=== PATIENT | female | born 1940 | race Caucasian/White ===

== ENCOUNTER → 2016-07-23 | Outpatient (CLI) | payer MEDICARE, BC ==
--- NOTE | 2016-07-23 19:44 | BD ---
EXAMINATION TYPE: MG DEXA axial skeleton. DATE OF EXAM: 07/23/2016 3:50 PM COMPARISON: NONE CLINICAL HISTORY: age related osteoporosis. Postmenopausal female. Height: 5'3 Weight: 132 FRAX RISK QUESTIONS: Alcohol (3 or more units per day): no Family History (Parent hip fracture): no Glucocorticoids (More than 3mos): no (Ex: prednisone, prednisolone, methylprednisolone, dexamethasone, and hydrocortisone). History of Fracture in Adulthood: yes Secondary Osteoporosis: 1. Type 1 Diabetes: no 2. Hyperthyroidism: no 3. Menopause before 45: yes 4. Malnutrition: no 5. Chronic liver disease: no Rheumatoid Arthritis: no Current Tobacco Use: no RISK FACTORS HISTORY OF: Other Fractures since Age 51: yes When: age 69 Active: Postmenopausal woman: MEDICATIONS: Thyroid Medications: Which medication: Levothyroxine How Lon years Additional Medications: IBS, blood pressure,Guillain barre Additional History: EXAM MEASUREMENTS: Bone mineral densitometry was performed using the [email or web address] System. Bone mineral density as measured about the Lumbar spine is: ----- L1-L4(G/cm2): 1.462 T Score Values are as follows: ----- L2: 1.9 ----- L3: 2.3 ----- L4: 2.9 ----- L1-L4: 2.3 Bone mineral density about the R hip (g/cm2): 1.050 Bone mineral density about the L hip (g/cm2): 1.017 T Score values are as follows: -----R Neck: 0.1 -----L Neck: -0.2 -----R Total: 0.9 -----L Total: 1.2 IMPRESSION: Normal (Values between +1 and -1 indicate normal bone mass). Consider repeating this study in 5 year s or sooner if there is some new clinical indication. NOTE: T-SCORE=SD OF THE YOUNG ADULT MEAN.
--- NOTE | 2016-07-24 12:45 | MM ---
Reason for exam: screening (asymptomatic). Last mammogram was performed 9 years and 1 month ago. History: Patient is postmenopausal. Benign excisional biopsy of the right breast, March 18, 2001. Physical Findings: A clinical breast exam by your physician is recommended on an annual basis and results should be correlated with mammographic findings. MG 3D Screening Mammo W/Cad Bilateral CC and MLO view(s) were taken. Prior study comparison: July 08, 2007, bilateral digital screening mammogram. There are scattered fibroglandular densities. There is no discrete abnormality. ASSESSMENT: Negative, BI-RAD 1 RECOMMENDATION: Routine screening mammogram of both breasts in 1 year.
== END | disposition home or self-care (01) ==
LOC: RADMAMWWP 15:00
PROVIDERS: ATTEND Internal Medicine Geriatric Medicine
DX: Z12.31 Encounter for screening mammogram for malignant neoplasm of breast (principal); M81.0 Age-related osteoporosis without current pathological fracture
CPT/HCPCS: 77080; 77063; G0202

== ENCOUNTER 2016-11-15 07:24 | Day surgery (SDC) | payer MEDICARE, BC ==
[2016-11-14 08:18] VITALS: BMI 23.8
[~2016-11-15 07:24] MED LIST: LACTATED RINGERS 1,000 ML IV SCH
[2016-11-15 07:45] VITALS: RESP 16; TEMP 97.3
[2016-11-15 07:55] LABS: Glucose,Whole Blood 124 mg/dL (75-99)
[2016-11-15] MEDS ORDERED: LIDOCAINE 1% 20 ML VIAL (10MG/ML) FOR IV START INTRADERMA ONE (08:00)
[2016-11-15] MEDS ORDERED: PROPOFOL 10 MG/ML 20 ML VIAL IV ONE (08:06)
--- NOTE | 2016-11-15 08:38 | P.PCN ---
Date of Procedure: 11/15/16 Preoperative Diagnosis: Postoperative Diagnosis: Procedure(s) Performed: BRIEF HISTORY: Patient is a 75-year-old pleasant white female, scheduled for an elective colonoscopy as a part of surveillance for long-standing history of ulcerative colitis. She is in clinical remission. PROCEDURE PERFORMED: Colonoscopy with biopsy. PREOPERATIVE DIAGNOSIS: Long-standing history of ulcerative colitis. IV sedation per Anesthesia. PROCEDURE: After informed consent was obtained, the patient, was brought into the endoscopy unit. IV sedation was administered by Anesthesia under continuous monitoring. Digital rectal examination was normal. Initially the Olympus CF- 160 flexible video colonoscope was then inserted in the rectum, gradually advanced into the sigmoid colon and further advancement was not possible. Hence the scope was removed and a pediatric colonoscope was introduced into the rectum and gently advanced into the cecum without any difficulty. Careful examination was performed as the scope was gradually being withdrawn. Ileocecal valve and the appendiceal orifice were visualized and appeared normal. Prep was fair.. Mucosa of the cecum, ascending colon, transverse colon, descending colon, sigmoid colon, and rectum appeared normal. Multiple random biopsies were done from all different areas of the colon at every 10 cm into well. Retroflexion was performed in the rectum and no lesions were seen. Scattered sigmoid diverticulosis seen. The patient tolerated the procedure well. IMPRESSION: Normal-appearing colon from rectum to cecum with no evidence of active colitis or colorectal neoplasia. Scattered sigmoid diverticulosis RECOMMENDATIONS: Findings of this examination were discussed with the patient as well as a family. She was advised to follow with the biopsy results. If the biopsy does not show any evidence of dysplasia she can have a repeat colonoscopy in 3 years. Implants: Indications for Procedure: Operative Findings: Description of Procedure:
[2016-11-15 09:10] VITALS: BP 127/58; PULSE 53
== END 2016-11-15 09:29 | disposition home or self-care (01) ==
LOC: ORWHC2ENDO 07:24
PROVIDERS: ATTEND Internal Medicine Gastroenterology
DX: K52.9 Noninfective gastroenteritis and colitis, unspecified (principal); E11.9 Type 2 diabetes mellitus without complications; Z79.84 Long term (current) use of oral hypoglycemic drugs; E07.9 Disorder of thyroid, unspecified; G61.0 Guillain-Barre syndrome; Z79.899 Other long term (current) drug therapy; Z88.1 Allergy status to other antibiotic agents; Z88.8 Allergy status to other drugs, medicaments and biological substances
CPT/HCPCS: 88305; 45380; J2704

== ENCOUNTER 2016-12-22 14:24 | Inpatient (IN) | payer MEDICARE, BC ==
[2016-12-22] MEDS ORDERED: SODIUM CHLORIDE 0.9% 500 ML IV STA (16:01)
[2016-12-22] MEDS ORDERED: HYDROmorphone 1 MG/ML 1 ML SYRINGE IVP STA (16:01)
[2016-12-22] MEDS ORDERED: SODIUM CHLORIDE 0.9% 1,000 ML IV STA (16:01)
[2016-12-22] MEDS ORDERED: ONDANSETRON 4 MG/2 ML VIAL IVP STA (16:01)
--- NOTE | 2016-12-22 16:26 | ED ---
General Adult HPI - General Source: patient, family, RN notes reviewed, old records reviewed Mode of arrival: wheelchair Limitations: no limitations <Mathieu Renteria - Last Filed: 12/22/16 16:02> <Alden Ackerman - Last Filed: 12/22/16 18:36> <Pipo Rhodes - Last Filed: 12/22/16 19:15> - General Chief complaint: Abdominal Pain Stated complaint: Abd Pain Time Seen by Provider: 12/22/16 15:49 - History of Present Illness Initial comments: Chief complaint history of present illness this is a 76-year-old female here with her . The patient reports since partially To patient having severe epigastric pain is in the supraumbilical area. The patient does have appointment to have a hernia in this area repaired in approximately 3 weeks. Currently she's had nausea vomiting and severe pain. Even mild palpation over the palpable golf ball sized hernia causes excruciating discomfort. (Mathieu Renteria) - Related Data Home Medications Medication Instructions Recorded Confirmed Levothyroxine Sodium [Synthroid] 100 mcg PO DAILY 03/14/14 12/22/16 Mirabegron [Myrbetriq] 25 mg PO DAILY 11/14/16 12/22/16 metFORMIN HCL [Glucophage] 500 mg PO BID 11/14/16 12/22/16 Carvedilol [Coreg] 3.125 mg PO BID 12/22/16 12/22/16 Cholecalciferol [Vitamin D3] 1,000 unit PO DAILY 12/22/16 12/22/16 glipiZIDE [Glucotrol] 5 mg PO AC-BRKFST 12/22/16 12/22/16 Allergies Allergy/AdvReac Type Severity Reaction Status Date / Time clarithromycin [From Biaxin] Allergy Unknown Verified 12/22/16 16:24 diphenhydramine HCl AdvReac Unknown Verified 12/22/16 16:24 [From Benadryl] Review of Systems ROS Other: All systems not noted in ROS Statement are negative. <Mathieu Renteria - Last Filed: 12/22/16 16:02> ROS Other: All systems not noted in ROS Statement are negative. <Alden Ackerman - Last Filed: 12/22/16 18:36> ROS Other: All systems not noted in ROS Statement are negative. <Pipo Rhodes - Last Filed: 12/22/16 19:15> ROS Statement: Those systems with pertinent positive or pertinent negative responses have been documented in the HPI. Review of systems no complaint of headache, chest pain, or shortness of breath. The patient does have exquisite supraumbilical pain and a palpable nonreducible hernias appreciated. The patient won't allow even mild palpation to try to reduce the hernia at this time because of the pain. No neuro deficits. All systems are reviewed. 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 Surgeries cholecystectomy, hysterectomy, bilateral hand surgeries because of the plan beret. Family history no cancers. Nonsmoker nondrinker. ALLERGIES include erythromycin and diphenhydramine. (Mathieu Renteria) Past Medical History Past Medical History: Diabetes Mellitus, Thyroid Disorder Additional Past Medical History / Comment(s): guillain-barre syndrome, History of Any Multi-Drug Resistant Organisms: None Reported Past Surgical History: Cholecystectomy, Hysterectomy, Orthopedic Surgery Additional Past Surgical History / Comment(s): junior hand surgery, thryroid Past Anesthesia/Blood Transfusion Reactions: No Reported Reaction Past Psychological History: No Psychological Hx Reported Smoking Status: Never smoker - Past Family History Mother Family Medical History: No Reported History <Mathieu Renteria - Last Filed: 12/22/16 16:02> General Exam Limitations: no limitations <Mathieu Renteria - Last Filed: 12/22/16 16:02> <Alden Ackerman - Last Filed: 12/22/16 18:36> <Pipo Rhodes - Last Filed: 12/22/16 19:15> - General Exam Comments Initial Comments: General: The patient is awake and alert, moderate distress because of a nonreducible supraumbilical hernia. Vital signs temperature 98.6 pulse 69 respiratory rate 18 pulse ox 97% room air blood pressure 141/92 Eye: Pupils are equal, , extra-ocular movements are intact; there is normal conjunctiva bilaterally. Ears, nose, mouth and throat: There are moist mucous membranes Neck: The neck is supple, there is no tenderness or JVD. Cardiovascular: There is a regular rate and rhythm. No murmur appreciated. Respiratory: Lungs are clear to auscultation, respirations are non-labored, breath sounds are equal. No wheezes, stridor, rales, or rhonchi. Gastrointestinal: Is identified, golf ball sized supraumbilical hernia exquisitely painful to palpation. Patient cannot stand the pain while trying to reduce. Patient be placed in Trendelenburg with an ice pack to help it resolve spontaneously. The patient reports having had similar pain one week ago it spontaneously resolved. Back: No complaint of back pain Musculoskeletal: Upper and lower extremities normal. 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 Skin: Skin is warm and dry and no rashes or lesions are noted. (Mathieu Renteria) Medical Decision Making <Mathieu Renteria - Last Filed: 12/22/16 16:02> - Lab Data Result diagrams: 12/22/16 16:50 12/22/16 16:50 - Radiology Data Radiology results: image reviewed (Abdominal x-ray shows no acute process) <Alden Ackerman - Last Filed: 12/22/16 18:36> - Lab Data Result diagrams: 12/22/16 16:50 12/22/16 16:50 <Pipo Rhodes - Last Filed: 12/22/16 19:15> - Medical Decision Making Patient reevaluated by myself, Dr. Ackerman. I also did attempt reduction of suprapubic umbilical hernia. This was minimally reduced. Patient did not allow further reduction secondary to discomfort. Case was discussed in detail with Dr. Yu who will come evaluate patient with probable surgery. She is covering for Dr. Michaud. Patient does have surgery scheduled with Dr. Jose Steiner on January 14. (Alden Ackerman) I reviewed the preop EKG because Dr. Ackerman had left. EKG shows a sinus bradycardia 59 bpm WV interval is 202 QRS is 76 QT interval 456 QTC is [address] segment elevation or depression no T-wave abnormalities are noted ( Pipo Rhodes) - Lab Data Lab Results 12/22/16 12/22/16 12/22/16 Range/Units 16:50 16:50 16:50 WBC 5.3 (3.8-10.6) k/uL RBC 4.18 (3.80-5.40) m/uL Hgb 12.6 (11.4-16.0) gm/dL Hct 39.8 (34.0-46.0) % MCV 95.2 (80.0-100.0) fL MCH 30.0 (25.0-35.0) pg MCHC 31.6 (31.0-37.0) g/dL RDW 13.0 (11.5-15.5) % Plt Count 244 (150-450) k/uL Neutrophils % 64 % Lymphocytes % 25 % Monocytes % 7 % Eosinophils % 1 % Basophils % 1 % Neutrophils # 3.4 (1.3-7.7) k/uL Lymphocytes # 1.3 (1.0-4.8) k/uL Monocytes # 0.4 (0-1.0) k/uL Eosinophils # 0.0 (0-0.7) k/uL Basophils # 0.0 (0-0.2) k/uL Sodium 140 (137-145) mmol/L Potassium 4.2 (3.5-5.1) mmol/L Chloride 107 (98-107) mmol/L Carbon Dioxide 22 (22-30) mmol/L Anion Gap 11 mmol/L BUN 15 (7-17) mg/dL Creatinine 0.40 L (0.52-1.04) mg/dL Est GFR (MDRD) Af Amer >60 (>60 ml/min/1.73 sqM) Est GFR (MDRD) Non-Af >60 (>60 ml/min/1.73 sqM) Glucose 148 H (74-99) mg/dL Plasma Lactic Acid Michael 1.1 (0.7-2.0) mmol/L Calcium 9.2 (8.4-10.2) mg/dL Total Bilirubin 0.5 (0.2-1.3) mg/dL AST 23 (14-36) U/L ALT 36 (9-52) U/L Alkaline Phosphatase 53 (38-126) U/L Total Protein 7.5 (6.3-8.2) g/dL Albumin 4.1 (3.5-5.0) g/dL Amylase 64 (30-110) U/L Lipase 81 (23-300) U/L Urine Color Urine Appearance (Clear) Urine pH (5.0-8.0) Ur Specific Cutler (1.001-1.035) Urine Protein (Negative) Urine Glucose (UA) (Negative) Urine Ketones (Negative) Urine Blood (Negative) Urine Nitrite (Negative) Urine Bilirubin (Negative) Urine Urobilinogen (<2.0) mg/dL Ur Leukocyte Esterase (Negative) Urine RBC (0-5) /hpf Urine WBC (0-5) /hpf Urine Bacteria (None) /hpf 12/22/16 Range/Units 17:08 WBC (3.8-10.6) k/uL RBC (3.80-5.40) m/uL Hgb (11.4-16.0) gm/dL Hct (34.0-46.0) % MCV (80.0-100.0) fL MCH (25.0-35.0) pg MCHC (31.0-37.0) g/dL RDW (11.5-15.5) % Plt Count (150-450) k/uL Neutrophils % % Lymphocytes % % Monocytes % % Eosinophils % % Basophils % % Neutrophils # (1.3-7.7) k/uL Lymphocytes # (1.0-4.8) k/uL Monocytes # (0-1.0) k/uL Eosinophils # (0-0.7) k/uL Basophils # (0-0.2) k/uL Sodium (137-145) mmol/L Potassium (3.5-5.1) mmol/L Chloride (98-107) mmol/L Carbon Dioxide (22-30) mmol/L Anion Gap mmol/L BUN (7-17) mg/dL Creatinine (0.52-1.04) mg/dL Est GFR (MDRD) Af Amer (>60 ml/min/1.73 sqM) Est GFR (MDRD) Non-Af (>60 ml/min/1.73 sqM) Glucose (74-99) mg/dL Plasma Lactic Acid Michael (0.7-2.0) mmol/L Calcium (8.4-10.2) mg/dL Total Bilirubin (0.2-1.3) mg/dL AST (14-36) U/L ALT (9-52) U/L Alkaline Phosphatase (38-126) U/L Total Protein (6.3-8.2) g/dL Albumin (3.5-5.0) g/dL Amylase (30-110) U/L Lipase (23-300) U/L Urine Color Light Yellow Urine Appearance Clear (Clear) Urine pH 6.0 (5.0-8.0) Ur Specific Cutler 1.007 (1.001-1.035) Urine Protein Negative (Negative) Urine Glucose (UA) Negative (Negative) Urine Ketones Negative (Negative) Urine Blood Small H (Negative) Urine Nitrite Negative (Negative) Urine Bilirubin Negative (Negative) Urine Urobilinogen <2.0 (<2.0) mg/dL Ur Leukocyte Esterase Negative (Negative) Urine RBC 6 H (0-5) /hpf Urine WBC 1 (0-5) /hpf Urine Bacteria Rare H (None) /hpf Disposition <Mathieu Renteria - Last Filed: 12/22/16 16:02> Decision Time: 18:38 <Alden Ackerman - Last Filed: 12/22/16 18:36> <Pipo Rhodes - Last Filed: 12/22/16 19:15> Clinical Impression: Incarcerated hernia Disposition: ADMITTED IP TO THIS [facility] Condition: Serious
[2016-12-22 17:09] LABS: Basophils % (A) 1 %; CH 30.6; CHCM 32.3; Eosinophils % (A) 1 %; HCT 39.8 % (34.0-46.0); HGB 12.6 gm/dL (11.4-16.0); Luc # (Auto) 0.13; Luc % (Auto) 3; Lymphocytes # (A) 1.3 k/uL (1.0-4.8); Lymphocytes % (A) 25 %; MCHC 31.6 g/dL (31.0-37.0); MCV 95.2 fL (80.0-100.0); Mean Platelet Volume 7.1; Monocytes # (A) 0.4 k/uL (0-1.0); Monocytes % (A) 7 %; Neutrophils # (A) 3.4 k/uL (1.3-7.7); Neutrophils % (A) 64 %; RBC 4.18 m/uL (3.80-5.40); WBC 5.3 k/uL (3.8-10.6); WBC (Perox) 5.19
[2016-12-22 17:18] LABS: ALT 36 U/L (9-52); AST 23 U/L (14-36); Alkaline Phosphatase 53 U/L (38-126); Amylase 64 U/L (30-110); Anion Gap 11 mmol/L; Blood Urea Nitrogen 15 mg/dL (7-17); Calcium 9.2 mg/dL (8.4-10.2); Carbon Dioxide 22 mmol/L (22-30); Chloride 107 mmol/L (98-107); Glucose 148 mg/dL (74-99); Non-African American GFR(MDRD) >60 (>60 ml/min/1.73 sqM); Potassium 4.2 mmol/L (3.5-5.1); Sodium 140 mmol/L (137-145); Total Bilirubin 0.5 mg/dL (0.2-1.3); Total Protein 7.5 g/dL (6.3-8.2)
[2016-12-22 17:26] LABS: Appearance,Urine Clear (Clear); Bacteria,Urine Rare /hpf; Bilirubin,Urine Negative (Negative); Glucose,Urine (UA) Negative (Negative); Ketones,Urine Negative (Negative); Leukocyte Esterase,Urine Negative (Negative); Nitrite,Urine Negative (Negative); Particle Count 270; Protein,Urine Negative (Negative); RBC,Urine 6 /hpf (0-5); Specific Gravity,Urine 1.007 (1.001-1.035); UA Billing (MACRO vs. MICRO) MICRO; Urobilinogen,Urine <2.0 mg/dL (<2.0); WBC,Urine 1 /hpf (0-5)
--- NOTE | 2016-12-22 17:51 | XR ---
EXAMINATION TYPE: XR abdomen complete w decub DATE OF EXAM: 12/22/2016 CLINICAL HISTORY: Nonreducible supraumbilical hernia with pain. TECHNIQUE: Supine, upright, and left side down lateral decubitus views of the abdomen are obtained. COMPARISON: Abdominal x-ray May 30, 2012. FINDINGS: Scattered gas is seen in non-distended small bowel loops. Gas and fecal material is seen in non-distended colon. Cholecystectomy clips are now present. There are scattered pelvic phleboliths seen. Lung bases are clear. Visualized osseous structures are intact. IMPRESSION: Overall nonobstructive bowel gas pattern.
[2016-12-22] MEDS ORDERED: NALOXONE 0.4 MG/ML 1 ML VIAL IV PRN (18:38)
[2016-12-22] MEDS ORDERED: NEOSTIGMINE 1 MG/ML 10 ML VIAL ONE (19:40)
[2016-12-22] MEDS ORDERED: ONDANSETRON 4 MG/2 ML VIAL ONE (19:40)
[2016-12-22] MEDS ORDERED: SUCCINYLCHOLINE CHLORIDE 100 MG/5 ML SYR IV ONE (19:40)
[2016-12-22] MEDS ORDERED: fentaNYL (PF) 50 MCG/ML 2 ML AMP ONE (19:40)
[2016-12-22] MEDS ORDERED: hydrALAZINE HCL 20 MG/ML 1 ML VIAL ONE (19:40)
[2016-12-22] MEDS ORDERED: VECURONIUM 10 MG VIAL IV ONE (19:40)
[2016-12-22] MEDS ORDERED: MIDAZOLAM 2 MG/2 ML VIAL ONE (19:40)
[2016-12-22] MEDS ORDERED: LIDOCAINE 1% INJ 10MG/ML (20 ML MDV) ONE (19:40)
[2016-12-22] MEDS ORDERED: DEXAMETHASONE SOD PHOS (MDV) 100 MG/10 ML VIAL ONE (19:40)
[2016-12-22] MEDS ORDERED: PROPOFOL 10 MG/ML 20 ML VIAL IV ONE (19:40)
[2016-12-22] MEDS ORDERED: GLYCOPYRROLATE 0.2 MG/ML 2 ML VIAL ONE (19:40)
[2016-12-22] MEDS ORDERED: SODIUM CHLORIDE 0.9% 500 ML IV ONE (19:40)
[2016-12-22] MEDS ORDERED: HYDROmorphone (PF) 1 MG/ML ONE (19:40)
[2016-12-22] MEDS ORDERED: HEPARIN SODIUM,PORCINE 5,000 UNIT/ML 1 ML VIAL ONE (19:40)
[2016-12-22] MEDS ORDERED: KETAMINE 10 MG/ML 20 ML VIAL ONE (19:40)
[2016-12-22] MEDS ORDERED: ceFAZolin 1,000 MG VIAL ONE (19:40)
[2016-12-22] MEDS ORDERED: BUPIVACAINE (PF) 0.25% 30 ML VIAL SQ ONE ×3 (20:03)
[2016-12-22] MEDS ORDERED: LACTATED RINGERS 1,000 ML IV ONE (20:11)
[2016-12-22] MEDS ORDERED: ONDANSETRON 4 MG/2 ML VIAL IVP PRN (21:25)
--- NOTE | 2016-12-22 21:29 | P.GSHP ---
History of Present Illness H&P Date: 12/22/16 Chief Complaint: Incarcerated ventral hernia 76 yrs old female presented with incarcerated epigastric hernia. Scheduled for elective repair by Dr. Jose Murdock in January. She has diffuse abdominal pain, nausea and vomiting. No fever, chills, rigors. - Constitutional Constitutional: Reports fatigue - EENT Ears, nose, mouth and throat: Reports as per HPI - Cardiovascular Cardiovascular: Reports as per HPI - Respiratory Respiratory: Reports as per HPI - Gastrointestinal Gastrointestinal: Reports as per HPI - Genitourinary (Female) Genitourinary: Reports as per HPI - Menstruation Menstruation: Reports postmenopausal - Musculoskeletal Musculoskeletal: Reports as per HPI - Integumentary Integumentary: Reports as per HPI - Psychiatric Psychiatric: Reports as per HPI - Endocrine Endocrine: Reports as per HPI - Hematologic/Lymphatic Hematologic/Lymphatic: Reports as per HPI - Allergic/Immunologic Allergic/Immunologic: Reports as per HPI Past Medical History Past Medical History: Diabetes Mellitus, Thyroid Disorder Additional Past Medical History / Comment(s): guillain-barre syndrome, History of Any Multi-Drug Resistant Organisms: None Reported Past Surgical History: Cholecystectomy, Hysterectomy, Orthopedic Surgery Additional Past Surgical History / Comment(s): junior hand surgery, thryroid Past Anesthesia/Blood Transfusion Reactions: No Reported Reaction Smoking Status: Never smoker - Past Family History Mother Family Medical History: No Reported History Medications and Allergies Home Medications Medication Instructions Recorded Confirmed Type Levothyroxine Sodium [Synthroid] 100 mcg PO DAILY 03/14/14 12/22/16 History Mirabegron [Myrbetriq] 25 mg PO DAILY 11/14/16 12/22/16 History metFORMIN HCL [Glucophage] 500 mg PO BID 11/14/16 12/22/16 History Carvedilol [Coreg] 3.125 mg PO BID 12/22/16 12/22/16 History Cholecalciferol [Vitamin D3] 1,000 unit PO DAILY 12/22/16 12/22/16 History glipiZIDE [Glucotrol] 5 mg PO AC-BRKFST 12/22/16 12/22/16 History Allergies Allergy/AdvReac Type Severity Reaction Status Date / Time clarithromycin [From Biaxin] Allergy Unknown Verified 12/22/16 16:24 diphenhydramine HCl AdvReac Unknown Verified 12/22/16 16:24 [From Benadryl] Surgical - Exam - General well developed, moderate distress, severe pain - Eyes normal ocular movement, pale - Neck no masses - Respiratory normal expansion, normal respiratory effort, clear to auscultation - Cardiovascular Rhythm: regular Heart Sounds: normal: S1, S2 - Abdomen Abdomen: tender (Diffuse tendernes with peritonitis ) - Integumentary no rash - Musculoskeletal normal gait - Psychiatric oriented to time, oriented to person, oriented to place, speech is normal, memory intact Results - Imaging Abdominal x-ray: image reviewed Assessment and Plan (1) Type 2 diabetes mellitus Status: Acute (2) Incarcerated hernia Status: Acute (3) Hypothyroidism Status: Acute (4) Peritonitis Status: Acute Plan: 1. Incarcerated ventral hernia with localized peritonitis 2. Lap hernia repair with mesh possible open, possible bowel resection 3. Heparin 5000U SQ 4. Ancef 2gm IVPBx1 5. Bilateral SCDS Past Medical History Past Medical History: Diabetes Mellitus, Thyroid Disorder Additional Past Medical History / Comment(s): guillain-barre syndrome, History of Any Multi-Drug Resistant Organisms: None Reported Past Surgical History: Cholecystectomy, Hysterectomy, Orthopedic Surgery Additional Past Surgical History / Comment(s): junior hand surgery, thryroid Past Anesthesia/Blood Transfusion Reactions: No Reported Reaction Past Psychological History: No Psychological Hx Reported Smoking Status: Never smoker - Past Family History Mother Family Medical History: No Reported History Medications and Allergies Home Medications Medication Instructions Recorded Confirmed Type Levothyroxine Sodium [Synthroid] 100 mcg PO DAILY 03/14/14 12/22/16 History Mirabegron [Myrbetriq] 25 mg PO DAILY 11/14/16 12/22/16 History metFORMIN HCL [Glucophage] 500 mg PO BID 11/14/16 12/22/16 History Carvedilol [Coreg] 3.125 mg PO BID 12/22/16 12/22/16 History Cholecalciferol [Vitamin D3] 1,000 unit PO DAILY 12/22/16 12/22/16 History glipiZIDE [Glucotrol] 5 mg PO AC-BRKFST 12/22/16 12/22/16 History Allergies Allergy/AdvReac Type Severity Reaction Status Date / Time clarithromycin [From Biaxin] Allergy Unknown Verified 12/22/16 16:24 diphenhydramine HCl AdvReac Unknown Verified 12/22/16 16:24 [From Benadryl] Surgical - Exam Vital Signs Temp Pulse Resp BP Pulse Ox 98.6 F 69 18 141/92 97 12/22/16 15:04 12/22/16 15:04 12/22/16 15:04 12/22/16 15:04 12/22/16 15:04 Results - Labs 12/22/16 16:50 12/22/16 16:50 Abnormal Lab Results - Last 24 Hours (Table) 12/22/16 12/22/16 Range/Units 16:50 17:08 Creatinine 0.40 L (0.52-1.04) mg/dL Glucose 148 H (74-99) mg/dL Urine Blood Small H (Negative) Urine RBC 6 H (0-5) /hpf Urine Bacteria Rare H (None) /hpf Diabetes panel 12/22/16 Range/Units 16:50 Sodium 140 (137-145) mmol/L Potassium 4.2 (3.5-5.1) mmol/L Chloride 107 (98-107) mmol/L Carbon Dioxide 22 (22-30) mmol/L BUN 15 (7-17) mg/dL Creatinine 0.40 L (0.52-1.04) mg/dL Glucose 148 H (74-99) mg/dL Calcium 9.2 (8.4-10.2) mg/dL AST 23 (14-36) U/L ALT 36 (9-52) U/L Alkaline Phosphatase 53 (38-126) U/L Total Protein 7.5 (6.3-8.2) g/dL Albumin 4.1 (3.5-5.0) g/dL Calcium panel 12/22/16 Range/Units 16:50 Calcium 9.2 (8.4-10.2) mg/dL Albumin 4.1 (3.5-5.0) g/dL Pituitary panel 12/22/16 Range/Units 16:50 Sodium 140 (137-145) mmol/L Potassium 4.2 (3.5-5.1) mmol/L Chloride 107 (98-107) mmol/L Carbon Dioxide 22 (22-30) mmol/L BUN 15 (7-17) mg/dL Creatinine 0.40 L (0.52-1.04) mg/dL Glucose 148 H (74-99) mg/dL Calcium 9.2 (8.4-10.2) mg/dL Adrenal panel 12/22/16 Range/Units 16:50 Sodium 140 (137-145) mmol/L Potassium 4.2 (3.5-5.1) mmol/L Chloride 107 (98-107) mmol/L Carbon Dioxide 22 (22-30) mmol/L BUN 15 (7-17) mg/dL Creatinine 0.40 L (0.52-1.04) mg/dL Glucose 148 H (74-99) mg/dL Calcium 9.2 (8.4-10.2) mg/dL Total Bilirubin 0.5 (0.2-1.3) mg/dL AST 23 (14-36) U/L ALT 36 (9-52) U/L Alkaline Phosphatase 53 (38-126) U/L Total Protein 7.5 (6.3-8.2) g/dL Albumin 4.1 (3.5-5.0) g/dL
--- NOTE | 2016-12-22 21:31 | P.OP ---
Date of Procedure: 12/22/16 Preoperative Diagnosis: Incarcerated incisional hernia Type 2 DM Hypertension Postoperative Diagnosis: Same Procedure(s) Performed: Laparoscopic ventral incisional hernia repair with mesh 11.[address] Implants: Ventralight ST 11.4 cm circular mesh Anesthesia: SALAZARA Surgeon: Jihan Yu Pathology: none sent Condition: stable Disposition: PACU Operative Findings: Incarcerated falciform ligament in the incisional hernia Adhesions from prior open J tube placement Description of Procedure: The patient was brought to the operating room and placed in supine position with both arms out. General anesthesia with endotracheal intubation was performed as per anesthesia team. The right arm was tucked against the body and a footboard was applied. Chlorhexidine was used to prep the skin followed by application of sterile drapes and Ioban dressing. A timeout was performed to verify correct patient and correct procedure. Patient was confirmed to receive perioperative IV antibiotics , bilateral SCDs and 5000 units of subcutaneous heparin for VTE prophylaxis. A 10 mm skin incision was made along the infraumbilical location and a Veress needle was inserted to establish the pneumoperitoneum to a pressure of 15 mm of Hg. Two additional 5 mm trocars were placed on the left mid and lower quadrants respectively. A 5 mm trocar was placed in the right upper quadrant. The hernia defect contained preperitoneal fat and faciform ligament which were reduced using gentle traction and countertraction method. The hernia sac and is contents were reduced and divided using laparoscopic Ligasure device. The hernia defect was small measuring less than 2 cm and was located at the medial aspect of the prior open J-tube incision site The falciform ligament was divided close to the anterior abdominal wall to create a landing zone for the mesh. A loop of small bowel was adhered to the left upper abdomen at the site of prior jejunostomy tube At 11.4 cm circular ventralight mesh was tagged in the center using a Vicryl stitich and was rolled and introduced to the abdominal cavity via the 10 mm trocar. The hernia defect was closed primarily with four transfascial sutures of #1 Neurolon using a Prieto Barney device. The Prieto Barney device was inserted through the middle of the hernia defect and stay suture was grasped to elevate the mesh against the anterior abdominal wall. Circumferential securestraps were applied to secure the mesh against the anterior abdominal wall. All trocar sites were examined. No evidence of bleeding. The 10 mm trocar site was closed using two transfascial sutures of #1 Neurolon which were placed using a Prieto Barney device. The pneumoperitoneum was evacuated and all the skin incisions were closed using 4-0 Monocryl followed by Dermabond skin glue. Telfa and Tegaderm dressings were applied. The sponge, instrument and needle count were correct x2. Abdominal binder was applied. The patient was extubated and taken to post anesthesia care unit in stable condition.
[2016-12-22] MEDS ORDERED: ONDANSETRON 4 MG/2 ML VIAL IVP ONE (21:34)
[2016-12-22] MEDS ORDERED: PROMETHAZINE INJ 25 MG/ML 1 ML VIAL IVPB ONE (21:42)
[2016-12-22] MEDS ORDERED: HYDROmorphone 1 MG/ML 1 ML SYRINGE IVP ONE (21:56)
[2016-12-22 22:09] LABS: Glucose,Whole Blood 258 mg/dL (75-99)
[2016-12-22] MEDS ORDERED: INSULIN LISPRO (humaLOG) 300 UNIT/3 ML VIAL SQ ONE (22:11)
[2016-12-22] MEDS: ACETAMINOPHEN IV (For NPO) 1,000 MG in EMPTY BAG 1 BAG IVPB SCH (23:18)
[2016-12-23] MEDS: HYDROmorphone 1 MG/ML 1 ML SYRINGE IVP PRN ×4 (01:09→23:54)
[2016-12-23] MEDS: SODIUM CHLORIDE 0.9% 1,000 ML IV SCH ×6 (01:26→23:51)
[2016-12-23] MEDS: HEPARIN SODIUM,PORCINE 5,000 UNIT/ML 1 ML VIAL SQ SCH ×4 (01:27→23:55)
[2016-12-23] MEDS: ACETAMINOPHEN IV (For NPO) 1,000 MG in EMPTY BAG 1 BAG IVPB SCH ×3 (05:29→17:20)
--- NOTE | 2016-12-23 08:47 | P.PN ---
<Shavonne Villanueva - Last Filed: 12/23/16 08:43> Subjective Progress Note Date: 12/23/16 76-year-old seen and examined at bedside spouse at bedside patient resting comfortably in bed states pain medication effective for pain control denies dizziness lightheadedness chest pain or shortness of breath Patient is postop 22 of December laparoscopic ventral incisional hernia repair with mesh for incarcerated incisional hernia Objective - Vital Signs Vital signs: Vital Signs Temp 99 F 12/23/16 07:00 Pulse 75 12/23/16 07:00 Resp 14 12/23/16 07:00 BP 104/60 12/23/16 07:00 Pulse Ox 96 12/23/16 07:00 Intake & Output 12/22/16 12/23/16 12/23/16 18:59 06:59 18:59 Intake Total 1770 Output Total 870 Balance 900 Weight 58.967 kg Intake: IV 950 Intake, IV Titration 820 Amount ACETAMINOPHEN IV (For NPO 100 ) 1,000 mg In Empty Bag 1 bag @ 400 mls/hr IVPB Q6HR [facility] Rx#:[id number] Sodium Chloride 0.9% 1, 720 000 ml @ 120 mls/hr IV . Q8H20M [facility] Rx#:[id number] Output: Urine 850 Estimated Blood Loss 20 Other: # Voids 1 - Exam physical exam 76-year-old female resting comfortably in bed pleasant cooperative oriented 3 Lungs essentially clear on room air Heart S1-S2 audible regular Abdomen abdominal binder in place surgical dressing dry few hypoactive bowel tones reports no nausea Extremities Venodyne's on bilateral lower extremity - Labs CBC & Chem 7: 12/22/16 16:50 12/22/16 16:50 Labs: Abnormal Lab Results - Last 24 Hours (Table) 12/22/16 12/22/16 12/22/16 Range/Units 16:50 17:08 22:07 Creatinine 0.40 L (0.52-1.04) mg/dL Glucose 148 H (74-99) mg/dL POC Glucose (mg/dL) 258 H (75-99) mg/dL Urine Blood Small H (Negative) Urine RBC 6 H (0-5) /hpf Urine Bacteria Rare H (None) /hpf Assessment and Plan Plan: impression Present on admission incarcerated incisional hernia Type 2 diabetes Hypertension status post 22 of December laparoscopic ventral incisional hernia repair with mesh for incarcerated incisional hernia Plan Continue postop surgical care Increase activity Pain control Advance diet as tolerated Follow-up on pending labs DVT and GI prophylaxis The above impression and plan of care have been discussed and directed by signing physician. Shavonne Villanueva nurse practitioner acting as scribe for signing physician. <Jihan Yu - Last Filed: 12/23/16 11:07> Objective - Vital Signs Vital signs: Vital Signs Temp 99 F 12/23/16 07:00 Pulse 75 12/23/16 07:00 Resp 14 12/23/16 07:00 BP 104/60 12/23/16 07:00 Pulse Ox 96 12/23/16 07:00 Intake & Output 12/22/16 12/23/16 12/23/16 18:59 06:59 18:59 Intake Total 1770 Output Total 870 Balance 900 Weight 58.967 kg Intake: IV 950 Intake, IV Titration 820 Amount ACETAMINOPHEN IV (For NPO 100 ) 1,000 mg In Empty Bag 1 bag @ 400 mls/hr IVPB Q6HR [facility] Rx#:[id number] Sodium Chloride 0.9% 1, 720 000 ml @ 120 mls/hr IV . Q8H20M [facility] Rx#:[id number] Output: Urine 850 Estimated Blood Loss 20 Other: # Voids 1 - Labs CBC & Chem 7: 12/22/16 16:50 12/22/16 16:50 Labs: Abnormal Lab Results - Last 24 Hours (Table) 12/22/16 12/22/16 12/22/16 Range/Units 16:50 17:08 22:07 Creatinine 0.40 L (0.52-1.04) mg/dL Glucose 148 H (74-99) mg/dL POC Glucose (mg/dL) 258 H (75-99) mg/dL Urine Blood Small H (Negative) Urine RBC 6 H (0-5) /hpf Urine Bacteria Rare H (None) /hpf Assessment and Plan Plan: Patient examined. Pain well controlled. Difficulty with ambulation. PT/OT consult. Assess for rehab needs
[2016-12-23 17:31] LABS: Glucose,Whole Blood 112 mg/dL (75-99)
[2016-12-24 02:38] VITALS: TEMP 98.3
[2016-12-24] MEDS: SODIUM CHLORIDE 0.9% 1,000 ML IV SCH (05:25)
[2016-12-24 06:58] VITALS: BP 122/69; PULSE 69; RESP 12
[2016-12-24] MEDS: HEPARIN SODIUM,PORCINE 5,000 UNIT/ML 1 ML VIAL SQ SCH (08:19)
--- NOTE | 2016-12-24 09:17 | P.DS ---
Providers Date of admission: 12/22/16 18:38 Expected date of discharge: 12/24/16 Attending physician: Jihan Yu [facility] 76-year-old presented with an incarcerated ventral hernia. Patient initially was scheduled for an elective repair by Dr. Calzada in January. Patient stated that she developed diffuse abdominal pain nausea vomiting. Presented with the above symptoms. Underwent on December 22 laparoscopic ventral incisional hernia repair with mesh for incarcerated incisional hernia, adhesions from a prior open J to placement. On the day of discharge patient was felt to be hemodynamically stable and appropriate proceed with a discharge to home. Patient had been up ambulatory in the unit pain medication effective for pain control white count 5.3 on the 22 of December. With a hemoglobin at 12.6. Labs were reviewed noted Present on admission incarcerated incisional hernia Type 2 diabetes Hypertension status post 22 of December laparoscopic ventral incisional hernia repair with mesh for incarcerated incisional hernia The above impression and plan of care have been discussed and directed by signing physician. Shavonne Villanueva nurse practitioner acting as scribe for signing physician. Patient Condition at Discharge: Serious Plan - Discharge Summary New Discharge Prescriptions: New HYDROcodone/APAP 5-325MG [Switchback 5-325] 1 tab PO Q4HR PRN #20 tab PRN Reason: Mild Breakthrough Pain Continue Levothyroxine Sodium [Synthroid] 100 mcg PO DAILY metFORMIN HCL [Glucophage] 500 mg PO BID Mirabegron [Myrbetriq] 25 mg PO DAILY Cholecalciferol [Vitamin D3] 1,000 unit PO DAILY glipiZIDE [Glucotrol] 5 mg PO AC-BRKFST Carvedilol [Coreg] 3.125 mg PO BID Discharge Medication List Levothyroxine Sodium [Synthroid] 100 mcg PO DAILY 03/14/14 [History] Mirabegron [Myrbetriq] 25 mg PO DAILY 11/14/16 [History] metFORMIN HCL [Glucophage] 500 mg PO BID 11/14/16 [History] Carvedilol [Coreg] 3.125 mg PO BID 12/22/16 [History] Cholecalciferol [Vitamin D3] 1,000 unit PO DAILY 12/22/16 [History] glipiZIDE [Glucotrol] 5 mg PO AC-BRKFST 12/22/16 [History] HYDROcodone/APAP 5-325MG [Switchback 5-325] 1 tab PO Q4HR PRN #20 tab 12/24/16 [Rx] Follow up Appointment(s)/Referral(s): Jihan Yu MD [STAFF PHYSICIAN] - 12/31/16 4:15 pm Patient Instructions/Handouts: Incisional Hernia (DC) Activity/Diet/Wound Care/Special Instructions: No lifting over 4 pounds until seen in the follow-up visit No tub bath Shower daily Notify attending of any fever chills redness or drainage at surgical sites Discharge Disposition: HOME SELF-CARE
== END 2016-12-24 10:46 | disposition home or self-care (01) | DRG 353 ==
LOC: EC 14:24 → 3SUR 18:38
PROVIDERS: ADMIT Surgery; ATTEND Surgery
PROC: 3E0M05Z Introduction of Adhesion Barrier into Peritoneal Cavity, Open Approach (ICD-10-PCS; principal; 2016-12-22 19:16)
PROC: 0WUF4JZ Supplement Abdominal Wall with Synthetic Substitute, Percutaneous Endoscopic Approach (ICD-10-PCS; principal; 2016-12-22 19:16)
DX: K43.0 Incisional hernia with obstruction, without gangrene (principal); K65.9 Peritonitis, unspecified; E11.9 Type 2 diabetes mellitus without complications; I10 Essential (primary) hypertension; E03.9 Hypothyroidism, unspecified; K42.9 Umbilical hernia without obstruction or gangrene; Z79.84 Long term (current) use of oral hypoglycemic drugs; Z79.899 Other long term (current) drug therapy; Z88.1 Allergy status to other antibiotic agents
CPT/HCPCS: 36415; 74020; 80053; 81001; 82150; 83605; 83690; 85025; 93005; 96361; 96374; 96375; 99285

== ENCOUNTER → 2017-04-30 | Outpatient (CLI) | payer MEDICARE, BC ==
[2017-04-30 08:02] LABS: Blood Urea Nitrogen 21 mg/dL (7-17)
--- NOTE | 2017-04-30 10:18 | CT ---
EXAMINATION TYPE: CT abdomen pelvis w con DATE OF EXAM: 04/30/2017 COMPARISON: 06/25/2008 HISTORY: 76 year-old female abdominal pain-upper abdomen left side TECHNIQUE: Contiguous axial scanning of the abdomen and pelvis following administration of 100 ml Omn ipaque 300 IV contrast. Delayed images through the kidneys and coronal/sagittal reconstructions perf ormed. CT DLP: 436.0 mGycm Automated exposure control for dose reduction was used. FINDINGS: Heart is upper limits of normal in size without pericardial effusion. Patchy pleural parenchymal scar ring peripheral right base unchanged. Minimal strandy atelectasis or scarring at the peripheral left base is new. No pleural effusion. Small hiatal hernia. Stable tiny subcentimeter hypodensity right liver lobe suggestive of a cyst. Otherwise, no focal live r lesion. Dilated at 1.0 cm but with normal distal tapering. Likely within normal limits given postch olecystectomy status. Portal venous system is patent. There appears to be a large 6.1 x 3.8 cm diverticulum of the third portion of the duodenum projecting into the pancreatic head region. Pancreas shows mild generalized atrophy, similar to prior. Mild diffuse thickening of the right adrenal gland without discrete nodularity. Left adrenal gland, s pleen with hilar splenule appear within normal limits. 4 mm and 3 mm nonobstructive right lower pole renal calculi. Subcentimeter hypodensities both kidneys too small for accurate CT characterization, probable cysts in There is mild bilateral pelvicaliectasis noted with fullness of the bilateral renal collecting system s. No suspicious calcification seen along the course of either ureter. Mild to moderate atherosclerotic calcifications within the abdominal aorta and iliac arteries. No dilated small bowel, free fluid, or free air. Prominent 8 mm mid mesenteric lymph node nonspecific , probably reactive/post inflammatory. Additional borderline enlarged 11 mm upper retroperitoneal lym ph node, axial image 35. No other lymphadenopathy seen. There is moderate stool burden. Sigmoid diverticulosis without pericolonic inflammatory change. Small amount of pelvic free fluid of uncertain etiology. Uterus surgically absent. Bladder is distend ed up to 10 cm. Pelvic phleboliths. No pelvic lymphadenopathy seen. Bones: Degenerative changes at the hips and mid to lower lumbar spine. Grade 1 anterolisthesis L4-L5 and degenerative disc disease lower thoracic spine as well. 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 IMPRESSION: 1. SIGMOID DIVERTICULOSIS WITHOUT ACUTE DIVERTICULITIS. 2. MILD BILATERAL PELVICALIECTASIS PROBABLY TRANSIENT NO OBSTRUCTING LESIONS OR URETERAL CALCULI A RE SEEN. CONSIDER SHORT INTERVAL FOLLOW-UP RENAL ULTRASOUND TO REASSESS. 3. SMALL AMOUNT OF PELVIC FREE FLUID OF UNCERTAIN ETIOLOGY. PATIENT IS STATUS POST HYSTERECTOMY. 4. NONOBSTRUCTIVE RIGHT RENAL CALCULI MEASURING 4 AND 3 MM. 5. A COUPLE BORDERLINE SIZED MID MESENTERIC AND UPPER RETROPERITONEAL LYMPH NODES MEASURING UP TO 8 M M ARE NONSPECIFIC, PROBABLY REACTIVE/POST INFLAMMATORY. A 6. INCIDENTAL STABLE LARGE 6.1 CM DUODENAL DIVERTICULUM.
== END | disposition home or self-care (01) ==
LOC: RADCTMAIN 07:14
PROVIDERS: ATTEND Surgery Plastic and Reconstructive Surgery
DX: N20.0 Calculus of kidney (principal); K57.50 Diverticulosis of both small and large intestine without perforation or abscess without bleeding; Z90.710 Acquired absence of both cervix and uterus
CPT/HCPCS: 82565; 84520; 74177; 36415; Q9967

== ENCOUNTER → 2017-05-23 | Outpatient (CLI) | payer MEDICARE, BC ==
--- NOTE | 2017-05-23 08:37 | US ---
EXAMINATION TYPE: US abdomen complete DATE OF EXAM: 05/23/2017 COMPARISON: Ultrasound April 12, [address] abdomen and pelvis 04/30/2017 CLINICAL HISTORY: N20.0 Kidney stone. GB removed x 5 years ago, NPO, stomach aches. CT showed liver cysts, renal cysts, and renal stones. EXAM MEASUREMENTS: Liver Length: 13.1 cm CBD: 0.4 cm CHD: 0.6 cm Spleen: 10.0 cm Right Kidney: 10.9 x 6.7 x 4.3 cm Left Kidney: 11.6 x 4.1 x 5.1 cm Pancreas: Head not well visualized. Main pancreatic duct = 1.9 mm Liver: wnl. Liver cyst not appreciated on ultrasound. Gallbladder: Surgically absent Evidence for sonographic Lundy's sign: neg CBD: wnl CHD: wnl Spleen: wnl Right Kidney: Medial anechoic lesion seen at hilum - 2.2 x 1.5 cm. Nonobstructing nephrolithiasis no priyank. Left Kidney: Possible cystic appearing lesion seen in sinus = 2.1 x 1.3 x 1.7 cm. Limited visualiza tion due to overlying bowel gas Upper IVC: wnl Abd Aorta: Plaque seen The liver is homogenous. The intrahepatic portion of the IVC and proximal abdominal aorta are within normal limits. There is no evidence of cholelithiasis. Common bile duct is unremarkable. The visu alized portions of the pancreas are homogenous. The spleen is unremarkable. IMPRESSION: 1. Nonobstructing right-sided nephrolithiasis. 2. Renal cystic lesions noted. 3. Tiny hepatic cyst seen at CT is not the redemonstrated at the ultrasound. Consider follow-up CT in 6 months.
== END | disposition home or self-care (01) ==
LOC: RADUSWWP 07:25
PROVIDERS: ATTEND Internal Medicine Geriatric Medicine
DX: N20.0 Calculus of kidney (principal); N28.1 Cyst of kidney, acquired
CPT/HCPCS: 76700

== ENCOUNTER → 2017-12-08 | Outpatient (CLI) | payer MEDICARE, BC | LOC: RADMAMWWP 13:09 | PROVIDERS: ATTEND Internal Medicine Geriatric Medicine | DX: Z53.9 Procedure and treatment not carried out, unspecified reason (principal) ==

== ENCOUNTER 2018-01-26 11:25 | Emergency (ER) | payer MEDICARE, BC ==
[2018-01-26 11:45] VITALS: TEMP 98
[2018-01-26] MEDS ORDERED: IPRATROPIUM-ALBUTEROL 3 ML NEB INHALATION STA ×2 (12:26→16:08)
--- NOTE | 2018-01-26 12:28 | ED ---
General Adult HPI - General Chief complaint: Upper Respiratory Infection Stated complaint: poss pneumonia Time Seen by Provider: 01/26/18 12:20 Source: patient, RN notes reviewed Mode of arrival: ambulatory Limitations: no limitations - History of Present Illness Initial comments: Patient 77-year-old female presented to the emergency room today with a chief complaint cough congestion over the last week. She does admit that she's had some sputum production. She states she is worried about pneumonia. States feels similar to pneumonia that she's had in the past. Does admit to some tightness in her chest with her breathing. She states the symptoms started just 2 days ago. Patient denies any other complaints or symptoms currently. Patient denies any recent fever, chills, shortness of breath, back pain, abdominal pain, nausea or vomiting, numbness or tingling, headaches or visual changes, or any other complaints. - Related Data Home Medications Medication Instructions Recorded Confirmed Carvedilol [Coreg] 3.125 mg PO BID 12/22/16 01/26/18 Apriso 0.375 mg PO DAILY 01/26/18 01/26/18 Levothyroxine Sodium [Synthroid] 75 mcg PO DAILY 01/26/18 01/26/18 glipiZIDE/METFORMIN HCL 1 tab PO BID 01/26/18 01/26/18 [glipiZIDE/METFORMIN HCL 5-500 mg] Previous Rx's Medication Instructions Recorded Azithromycin [Zithromax Z-pack] 0 mg PO DIRECTED #6 tab 01/26/18 Benzonatate [Tessalon Perles] 100 mg PO TID PRN #20 capsule 01/26/18 Allergies Allergy/AdvReac Type Severity Reaction Status Date / Time clarithromycin [From Biaxin] Allergy Unknown Verified 01/26/18 12:39 diphenhydramine HCl AdvReac Unknown Verified 01/26/18 12:39 [From Benadryl] Review of Systems ROS Statement: Those systems with pertinent positive or pertinent negative responses have been documented in the HPI. ROS Other: All systems not noted in ROS Statement are negative. 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, History of Any Multi-Drug Resistant Organisms: None Reported Past Surgical History: Cholecystectomy, Hysterectomy, Orthopedic Surgery Additional Past Surgical History / Comment(s): junior hand surgery, thryroid, cataract surgery Past Anesthesia/Blood Transfusion Reactions: No Reported Reaction Past Psychological History: No Psychological Hx Reported Smoking Status: Never smoker Past Alcohol Use History: None Reported Past Drug Use History: None Reported - Past Family History Mother Family Medical History: No Reported History General Exam - General Exam Comments Initial Comments: General: The patient is awake and alert, in no distress, and does not appear acutely ill. Eye: Pupils are equal, round and reactive to light. Extra-ocular movements are intact. No nystagmus. There is normal conjunctiva bilaterally. No signs of icterus. Ears, nose, mouth and throat: There are moist mucous membranes and no oral lesions. Neck: The neck is supple, there is no tenderness or JVD. Cardiovascular: There is a regular rate and rhythm. No murmur, rub or gallop is appreciated. Respiratory: She does have bilateral expiratory wheeze with rhonchi on the right. respirations are non-labored, breath sounds are equal. No stridor, rales. Musculoskeletal: Normal ROM, no tenderness. Sensation intact. Strength 5/5. Pulses equal bilaterally 2+. Neurological: A&O x 3. CN II-XII intact, There are no obvious motor or sensory deficits. Coordination appears grossly intact. Speech is normal. Skin: Skin is warm and dry and no rashes or lesions are noted. Psychiatric: Cooperative, appropriate mood & affect, normal judgment. Limitations: no limitations Course Vital Signs 01/26/18 01/26/18 01/26/18 11:41 12:48 12:53 Temperature 98 F Pulse Rate 68 68 76 Respiratory 18 Rate Blood Pressure 138/67 O2 Sat by Pulse 96 Oximetry 01/26/18 01/26/18 01/26/18 13:06 16:33 16:47 Temperature Pulse Rate 68 70 Respiratory 20 Rate Blood Pressure O2 Sat by Pulse Oximetry EKG Findings - EKG Comments: EKG Findings:: EKG performed at 1319: Shows sinus bradycardia first-degree AV block at 59 bpm DC interval 220. QRS 74. A QTc QT/QTc 448/443. No acute change. Medical Decision Making - Medical Decision Making Patient reexamined at this time states she is feeling better after breathing treatment. Lung sounds are much improved. Patient still admits to some tightness in the chest but states it is better. Was discussed with patient about admission to the hospital. Concerns for cardiac disease were discussed with the patient. She has declined admission. States she would like to go home. She feels that this is related to her cough and congestion. Patient will be treated with azithromycin also given a prescription for cough suppressant. Advised to follow up the family doctor tomorrow. Advised return if symptoms increase worsen or for any other concerns. - Lab Data Result diagrams: 01/26/18 13:04 01/26/18 13:04 Lab Results 01/26/18 01/26/18 01/26/18 Range/Units 13:04 13:04 13:04 WBC 5.6 (3.8-10.6) k/uL RBC 4.18 (3.80-5.40) m/uL Hgb 12.6 (11.4-16.0) gm/dL Hct 39.3 (34.0-46.0) % MCV 93.9 (80.0-100.0) fL MCH 30.0 (25.0-35.0) pg MCHC 32.0 (31.0-37.0) g/dL RDW 13.0 (11.5-15.5) % Plt Count 289 (150-450) k/uL Neutrophils % 58 % Lymphocytes % 31 % Monocytes % 6 % Eosinophils % 2 % Basophils % 1 % Neutrophils # 3.2 (1.3-7.7) k/uL Lymphocytes # 1.8 (1.0-4.8) k/uL Monocytes # 0.3 (0-1.0) k/uL Eosinophils # 0.1 (0-0.7) k/uL Basophils # 0.1 (0-0.2) k/uL PT (9.0-12.0) sec INR (<1.2) APTT (22.0-30.0) sec Sodium 140 (137-145) mmol/L Potassium 4.3 (3.5-5.1) mmol/L Chloride 109 H (98-107) mmol/L Carbon Dioxide 23 (22-30) mmol/L Anion Gap 8 mmol/L BUN 15 (7-17) mg/dL Creatinine 0.40 L (0.52-1.04) mg/dL Est GFR (CKD-EPI)AfAm >90 (>60 ml/min/1.73 sqM) Est GFR (CKD-EPI)NonAf >90 (>60 ml/min/1.73 sqM) Glucose 91 (74-99) mg/dL Plasma Lactic Acid Michael (0.7-2.0) mmol/L Calcium 9.7 (8.4-10.2) mg/dL Total Bilirubin 0.4 (0.2-1.3) mg/dL AST 21 (14-36) U/L ALT 19 (9-52) U/L Alkaline Phosphatase 48 (38-126) U/L Total Creatine Kinase 65 (30-135) U/L CK-MB (CK-2) 0.6 (0.0-2.4) ng/mL CK-MB (CK-2) Rel Index 0.9 Troponin I <0.012 (0.000-0.034) ng/mL Total Protein 7.5 (6.3-8.2) g/dL Albumin 4.1 (3.5-5.0) g/dL Urine Color Urine Appearance (Clear) Urine pH (5.0-8.0) Ur Specific [place] (1.001-1.035) Urine Protein (Negative) Urine Glucose (UA) (Negative) Urine Ketones (Negative) Urine Blood (Negative) Urine Nitrite (Negative) Urine Bilirubin (Negative) Urine Urobilinogen (<2.0) mg/dL Ur Leukocyte Esterase (Negative) Urine RBC (0-5) /hpf Urine WBC (0-5) /hpf 01/26/18 01/26/18 01/26/18 Range/Units 13:04 13:04 13:25 WBC (3.8-10.6) k/uL RBC (3.80-5.40) m/uL Hgb (11.4-16.0) gm/dL Hct (34.0-46.0) % MCV (80.0-100.0) fL MCH (25.0-35.0) pg MCHC (31.0-37.0) g/dL RDW (11.5-15.5) % Plt Count (150-450) k/uL Neutrophils % % Lymphocytes % % Monocytes % % Eosinophils % % Basophils % % Neutrophils # (1.3-7.7) k/uL Lymphocytes # (1.0-4.8) k/uL Monocytes # (0-1.0) k/uL Eosinophils # (0-0.7) k/uL Basophils # (0-0.2) k/uL PT 9.7 (9.0-12.0) sec INR 1.0 (<1.2) APTT 21.4 L (22.0-30.0) sec Sodium (137-145) mmol/L Potassium (3.5-5.1) mmol/L Chloride (98-107) mmol/L Carbon Dioxide (22-30) mmol/L Anion Gap mmol/L BUN (7-17) mg/dL Creatinine (0.52-1.04) mg/dL Est GFR (CKD-EPI)AfAm (>60 ml/min/1.73 sqM) Est GFR (CKD-EPI)NonAf (>60 ml/min/1.73 sqM) Glucose (74-99) mg/dL Plasma Lactic Acid Michael 1.2 (0.7-2.0) mmol/L Calcium (8.4-10.2) mg/dL Total Bilirubin (0.2-1.3) mg/dL AST (14-36) U/L ALT (9-52) U/L Alkaline Phosphatase (38-126) U/L Total Creatine Kinase (30-135) U/L CK-MB (CK-2) (0.0-2.4) ng/mL CK-MB (CK-2) Rel Index Troponin I (0.000-0.034) ng/mL Total Protein (6.3-8.2) g/dL Albumin (3.5-5.0) g/dL Urine Color Light Yellow Urine Appearance Clear (Clear) Urine pH 7.0 (5.0-8.0) Ur Specific [place] 1.007 (1.001-1.035) Urine Protein Negative (Negative) Urine Glucose (UA) Negative (Negative) Urine Ketones Negative (Negative) Urine Blood Small H (Negative) Urine Nitrite Negative (Negative) Urine Bilirubin Negative (Negative) Urine Urobilinogen <2.0 (<2.0) mg/dL Ur Leukocyte Esterase Negative (Negative) Urine RBC 5 (0-5) /hpf Urine WBC 1 (0-5) /hpf Disposition Clinical Impression: Acute bronchitis Disposition: HOME SELF-CARE Condition: Good Instructions: Acute Bronchitis (ED) Additional Instructions: Please use medication as discussed. Please follow-up with family doctor in the next 2 days of symptoms have not improved. Please return to emergency room if the symptoms increase or worsen or for any other concerns. Prescriptions: Azithromycin [Zithromax Z-pack] 0 mg PO DIRECTED #6 tab Benzonatate [Tessalon Perles] 100 mg PO TID PRN #20 capsule PRN Reason: Cough Is patient prescribed a controlled substance at d/c from ED?: No Referrals: Bruce Peña MD [Primary Care Provider] - 1-2 days Time of Disposition: 17:06
[2018-01-26 13:32] LABS: Basophils # (A) 0.1 k/uL (0-0.2); Basophils % (A) 1 %; Eosinophils # (A) 0.1 k/uL (0-0.7); Eosinophils % (A) 2 %; HCT 39.3 % (34.0-46.0); HGB 12.6 gm/dL (11.4-16.0); Lymphocytes # (A) 1.8 k/uL (1.0-4.8); Lymphocytes % (A) 31 %; MCV 93.9 fL (80.0-100.0); Mean Platelet Volume 6.7; Monocytes # (A) 0.3 k/uL (0-1.0); Monocytes % (A) 6 %; Neutrophils # (A) 3.2 k/uL (1.3-7.7); Neutrophils % (A) 58 %; Platelet Count 289 k/uL (150-450); RBC 4.18 m/uL (3.80-5.40); WBC 5.6 k/uL (3.8-10.6)
[2018-01-26 13:36] LABS: ALT 19 U/L (9-52); AST 21 U/L (14-36); Albumin 4.1 g/dL (3.5-5.0); Alkaline Phosphatase 48 U/L (38-126); Anion Gap 8 mmol/L; Blood Urea Nitrogen 15 mg/dL (7-17); Calcium 9.7 mg/dL (8.4-10.2); Carbon Dioxide 23 mmol/L (22-30); Chloride 109 mmol/L (98-107); Glucose 91 mg/dL (74-99); Potassium 4.3 mmol/L (3.5-5.1); Prothrombin Time 9.7 sec (9.0-12.0); Sodium 140 mmol/L (137-145); Total Bilirubin 0.4 mg/dL (0.2-1.3); Total Protein 7.5 g/dL (6.3-8.2)
[2018-01-26 13:37] LABS: Partial Thromboplastin Time 21.4 sec (22.0-30.0)
[2018-01-26 13:44] LABS: Creatine Kinase 65 U/L (30-135)
[2018-01-26 13:56] LABS: Creatine Kinase MB 0.6 ng/mL (0.0-2.4); Troponin I <0.012 ng/mL (0.000-0.034)
[2018-01-26 14:12] LABS: Appearance,Urine Clear (Clear); Bilirubin,Urine Negative (Negative); Blood,Urine Small (Negative); Color,Urine Light Yellow; Glucose,Urine (UA) Negative (Negative); Ketones,Urine Negative (Negative); Leukocyte Esterase,Urine Negative (Negative); Nitrite,Urine Negative (Negative); Protein,Urine Negative (Negative); RBC,Urine 5 /hpf (0-5); Specific Gravity,Urine 1.007 (1.001-1.035); Urobilinogen,Urine <2.0 mg/dL (<2.0)
--- NOTE | 2018-01-26 15:36 | XR ---
EXAMINATION TYPE: XR chest 2V DATE OF EXAM: 01/26/2018 COMPARISON: 06/28/2015 HISTORY: 77-year-old female with cough TECHNIQUE: PA and lateral views FINDINGS: Heart normal size. Atherosclerotic arch calcifications. Mild interstitial prominence and hyperinflati on. Stable blunting of the lateral right costophrenic angle suggestive for parenchymal scarring, unch anged from 2016. No kamlesh consolidation or significant pleural effusion seen. IMPRESSION: Suspect underlying COPD. Stable pleuroparenchymal scarring at the right base. No acute change seen.
[2018-01-26 17:37] VITALS: BP 110/80; PULSE 88; RESP 18
== END 2018-01-26 17:36 | disposition home or self-care (01) ==
LOC: EC 11:25
DX: J20.9 Acute bronchitis, unspecified (principal); E11.9 Type 2 diabetes mellitus without complications; E07.9 Disorder of thyroid, unspecified; G61.0 Guillain-Barre syndrome; Z88.1 Allergy status to other antibiotic agents; Z88.8 Allergy status to other drugs, medicaments and biological substances; Z79.84 Long term (current) use of oral hypoglycemic drugs; Z79.899 Other long term (current) drug therapy
CPT/HCPCS: 36415; 71046; 80053; 81001; 82550; 82553; 83605; 84484; 85025; 85610; 85730; 87040; 93005; 94640; 99285

== ENCOUNTER → 2019-01-29 | Outpatient (CLI) | payer MEDICARE, BC ==
[2019-01-29 16:38] LABS: Immunoglobulin E 13.1 IU/mL (0.00-114.00)
== END ==
LOC: LABWHC1 10:54
PROVIDERS: ATTEND Internal Medicine
DX: R31.9 Hematuria, unspecified (principal)
CPT/HCPCS: 36415; 82784; 82785; 86160; 86162; 86332

== ENCOUNTER 2019-03-14 17:47 | Emergency (ER) | payer MEDICARE, BC ==
[2019-03-14 18:18] VITALS: RESP 18
[2019-03-14] MEDS ORDERED: MORPHINE SULFATE 4 MG/ML SYRINGE IM STA (18:27)
--- NOTE | 2019-03-14 18:53 | XR ---
EXAMINATION TYPE: XR hand complete RT DATE OF EXAM: 03/14/2019 COMPARISON: None HISTORY: Fall, pain, swelling TECHNIQUE: Three-view right hand FINDINGS: Degenerative joint changes are present. No acute fractures are identified. There may be frankie e soft tissue swelling over the distal forearm. IMPRESSION: 1. No acute osseous abnormality. 2. Follow-up exams can be performed 7-10 days from acute trauma for continued pain.
--- NOTE | 2019-03-14 18:54 | XR ---
EXAMINATION TYPE: XR wrist complete RT DATE OF EXAM: 03/14/2019 COMPARISON: None HISTORY: Fall, pain TECHNIQUE: 3 views right wrist FINDINGS: There is soft tissue swelling over the distal forearm. No underlying fracture is evident. Joint spaces and mild degenerative change. There is pain at the anatomic snuff box, nuclear medicine bone scan be recommended for additional herminio luation. Follow-up exams can be performed 7-10 days from acute trauma for continued pain. IMPRESSION: 1. No acute osseous abnormality right wrist. 2. Distal forearm soft tissue swelling
[2019-03-14] MEDS ORDERED: ACET/COD 300 MG/30 MG STARTER PACK 6 TAB BTL PO STA (19:43)
[2019-03-14] MEDS ORDERED: HYDROmorphone 0.5 MG/0.5 ML SYRINGE IM STA (19:43)
--- NOTE | 2019-03-14 19:51 | ED ---
General Adult HPI - General Chief complaint: Extremity Injury, Upper Stated complaint: Fall, wrist injury Time Seen by Provider: 03/14/19 18:20 Source: patient, RN notes reviewed Mode of arrival: wheelchair Limitations: no limitations - History of Present Illness Initial comments: 78-year-old female with a past medical history diabetes presents to the e mergency department for a chief complaint of fall. Patient states that this happened prior to arrival. States that she was trying to pick something up off the ground and he was too heavy. States she fell backwards onto her right wrist. Patient states she is having pain in her right wrist that shoots up to her right hand. States it is painful to move. Denies any other injuries. Denies any back pain.Patient has no other complaints at this time including shortness of breath, chest pain, abdominal pain, nausea or vomiting, headache, or visual changes. - Related Data Home Medications Medication Instructions Recorded Confirmed Carvedilol [Coreg] 3.125 mg PO BID 12/22/16 01/26/18 Apriso 0.375 mg PO DAILY 01/26/18 01/26/18 Levothyroxine Sodium [Synthroid] 75 mcg PO DAILY 01/26/18 01/26/18 glipiZIDE/METFORMIN HCL 1 tab PO BID 01/26/18 01/26/18 [glipiZIDE/METFORMIN HCL 5-500 mg] Previous Rx's Medication Instructions Recorded Azithromycin [Zithromax Z-pack] 0 mg PO DIRECTED #6 tab 01/26/18 Benzonatate [Tessalon Perles] 100 mg PO TID PRN #20 capsule 01/26/18 Allergies Allergy/AdvReac Type Severity Reaction Status Date / Time clarithromycin [From Biaxin] Allergy Unknown Verified 03/14/19 18:18 diphenhydramine HCl AdvReac Unknown Verified 03/14/19 18:18 [From Benadryl] Review of Systems ROS Statement: Those systems with pertinent positive or pertinent negative responses have been documented in the HPI. ROS Other: All systems not noted in ROS Statement are negative. 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, History of Any Multi-Drug Resistant Organisms: None Reported Past Surgical History: Cholecystectomy, Hysterectomy, Orthopedic Surgery Additional Past Surgical History / Comment(s): junior hand surgery, thryroid, cataract surgery Past Anesthesia/Blood Transfusion Reactions: No Reported Reaction Past Psychological History: No Psychological Hx Reported Smoking Status: Never smoker Past Alcohol Use History: None Reported Past Drug Use History: None Reported - Past Family History Mother Family Medical History: No Reported History General Exam Limitations: no limitations General appearance: alert, in no apparent distress Head exam: Present: atraumatic, normocephalic, normal inspection Eye exam: Present: normal appearance, PERRL, EOMI. Absent: scleral icterus, conjunctival injection, periorbital swelling ENT exam: Present: normal exam, mucous membranes moist Neck exam: Present: normal inspection. Absent: tenderness, meningismus, lymphadenopathy Respiratory exam: Present: normal lung sounds bilaterally. Absent: respiratory distress, wheezes, rales, rhonchi, stridor Cardiovascular Exam: Present: regular rate, normal rhythm, normal heart sounds. Absent: systolic murmur, diastolic murmur, rubs, gallop, clicks Extremities exam: Present: tenderness (Generalized tenderness of the right wrist however this is worse in the anatomic snuffbox), normal capillary refill (Capillary refill less than 2 seconds, radial pulse 2+.), other (Sensation intact in the right upper extremity). Absent: full ROM (Patient does have intact flexor and extensor mechanisms of the right wrist and fingers however range of motion is limited secondary to pain.), pedal edema, joint swelling (No significant edema noted of the right wrist), calf tenderness Back exam: Absent: vertebral tenderness Course Vital Signs 03/14/19 18:16 Temperature 99.0 F Pulse Rate 62 Respiratory 18 Rate Blood Pressure 165/63 O2 Sat by Pulse 96 Oximetry Procedures - Orthopedic Splinting/Casting Injury #1 Side: right Upper Extremity Injury Location: short arm Upper Extremity Immobilizer: thumb spica Additional Comments: Neurovascular status intact after splint applied Medical Decision Making - Medical Decision Making Neurovascular status intact in the right upper extremity however patient does have pain in the anatomic snuffbox. X-ray of the right wrist shows no acute osseous abnormality. Distal forearm does have soft tissue swelling. Hand x-ray is unremarkable. At this time given tenderness to the anatomic snuffbox patient was splinted in a thumb spica due to concern for occult fracture. She was given morphine which did not help with her pain. Patient requested more pain medication after splint was placed and was given Dilaudid. She'll be sent home with Tylenol 3. She cannot take Motrin. I recommended she follow up with orthopedics, she requests referral to [facility] Disposition Clinical Impression: Wrist pain, right Disposition: HOME SELF-CARE Condition: Good Instructions (If sedation given, give patient instructions): Wrist Injury (ED) Additional Instructions: Please take Tylenol [address] or operate machinery while taking this. Please follow-up with orthopedics tomorrow morning. Return to the emergency department if you have any worsening symptoms. Is patient prescribed a controlled substance at d/c from ED?: No Referrals: Bruce Peña MD [Primary Care Provider] - 1-2 days Mckinley Lundy MD [STAFF PHYSICIAN] - 1-2 days Manuel Sharma DO [Doctor of Osteopathic Medicine] - 1-2 days Time of Disposition: 19:50
[2019-03-14 20:35] VITALS: BP 152/65; PULSE 68; TEMP 98.4
== END 2019-03-14 20:15 | disposition home or self-care (01) ==
LOC: EC 17:47
DX: M25.531 Pain in right wrist (principal); M25.431 Effusion, right wrist; E11.9 Type 2 diabetes mellitus without complications; E07.9 Disorder of thyroid, unspecified; Z98.890 Other specified postprocedural states; Z79.890 Hormone replacement therapy; Z79.84 Long term (current) use of oral hypoglycemic drugs; Z79.899 Other long term (current) drug therapy; Z88.1 Allergy status to other antibiotic agents; Z88.8 Allergy status to other drugs, medicaments and biological substances; W19.XXXA Unspecified fall, initial encounter
CPT/HCPCS: 99283; 29125; 96372 ×2; 73110; 73130; J2270; J1170

== ENCOUNTER → 2019-12-21 | Outpatient (CLI) | payer MEDICARE, BC ==
[2019-12-21 09:43] LABS: African American GFR (CKD) >90 (>60 ml/min/1.73 sqM); Blood Urea Nitrogen 18 mg/dL (7-17); Non-African American GFR(CKD) >90 (>60 ml/min/1.73 sqM)
--- NOTE | 2019-12-21 20:52 | CT ---
EXAMINATION TYPE: CT neck chest w con DATE OF EXAM: 12/21/2019 COMPARISON: None HISTORY: Hoarseness post trach removal CT DLP: 528.7 mGycm CONTRAST: Patient injected with 100 mL of Isovue 300. TECHNIQUE: Axial images at 3 mm thick sections. Reconstructed images in the coronal plane and sagitt al plane are reviewed. FINDINGS: Limited CT sections are obtained the lung apices. The lung apices appear clear. CT neck: The torus tubarius and fossa of Rosenmuller are normal. Cost Manager spaces are normal. Para nasal sinuses and mastoid air cells are clear. Parotid glands appear normal and symmetrical. Submandibular glands, are normal. Parapharyngeal spac es are normal. No suspicious adenopathy is evident. The hypopharynx appears within normal limits. Thyroid as visualized is normal. No tracheostomy opening is evident. The trachea within the [id number] appears normal. Vocal cord l evel is symmetrical. Osseous structures are normal. IMPRESSIONS: 1. Normal soft tissue neck EXAMINATION TYPE: CT neck chest w con DATE OF EXAM: 12/21/2019 COMPARISON: 11/15/2015 HISTORY: Hoarseness post trach removal CT DLP: 528.7 mGycm, Automated exposure control for dose reduction was used. CONTRAST: Performed injected with 100 mL of Isovue 300. TECHNIQUE: Axial images were obtained at 5 mm thick sections. Reconstructed images are reviewed on [employer] computer in the coronal plane. FINDINGS: Portion of the thyroid visualized is normal. No suspicious lung nodules are evident. There are some mild streak opacities within the right lung ba se laterally may be related to atelectasis. This was present previously could be related to scarring. Tracheobronchial tree is visualized is normal. Tracheostomy site appears unremarkable No enlarged mediastinal or hilar adenopathy is evident. The ascending aorta diameter at the level o f the main pulmonary artery is 3.1 cm. The main pulmonary artery diameter at the bifurcation is 2.[address] sections are obtained through the upper abdomen. Abdomen is essentially unremarkable. IMPRESSIONS: 1. No suspicious acute changes to account for patient hoarseness.
== END | disposition home or self-care (01) ==
LOC: RADCTMAIN 08:43
PROVIDERS: ATTEND Otolaryngology
DX: R05 Cough (principal); R49.0 Dysphonia; Z93.0 Tracheostomy status; Z88.1 Allergy status to other antibiotic agents; Z88.8 Allergy status to other drugs, medicaments and biological substances
CPT/HCPCS: 82565; 84520; 70491; 71260; Q9967

== ENCOUNTER → 2019-12-28 | Outpatient (CLI) | payer MEDICARE, BC | END | disposition home or self-care (01) | LOC: CPPFTMAIN 14:38 | PROVIDERS: ATTEND Otolaryngology | DX: J44.9 Chronic obstructive pulmonary disease, unspecified (principal) | CPT/HCPCS: 94060; 94726; 94729 ==

== ENCOUNTER 2021-05-01 07:29 | Day surgery (SDC) | payer MEDICARE, BC ==
[2021-04-26 13:06] VITALS: BMI 24.7
[~2021-05-01 07:29] MED LIST changes: -LACTATED RINGERS 1,000 ML IV SCH; +LIDOCAINE 1% (10MG/ML) FOR IV START INTRADERMA PRN
[2021-05-01 07:48] VITALS: TEMP 98.1
[2021-05-01] MEDS: LACTATED RINGERS 1,000 ML IV SCH ×2 (08:04→08:16)
[2021-05-01 08:05] LABS: Glucose,Whole Blood 156 mg/dL (75-99)
[2021-05-01] MEDS ORDERED: PROPOFOL 10 MG/ML 20 ML VIAL IV ONE (08:16)
--- NOTE | 2021-05-01 08:34 | P.PCN ---
Date of Procedure: 05/01/21 Procedure(s) Performed: BRIEF HISTORY: Patient is a 80-year-old pleasant white female scheduled for an elective colonoscopy as a part of long standing history of ulcerative colitis diagnosed in 2005. She is in clinical remission. PROCEDURE PERFORMED: Colonoscopy with random biopsy. PREOPERATIVE DIAGNOSIS: Long-standing history of ulcerative colitis. IV sedation per Anesthesia. PROCEDURE: After informed consent was obtained, the patient, was brought into the endoscopy unit. IV sedation was administered by Anesthesia under continuous monitoring. Digital rectal examination was normal. Initially the Olympus CF-160 flexible video colonoscope was then inserted in the rectum, gradually advanced into the cecum without any difficulty. Careful examination was performed as the scope was gradually being withdrawn. Ileocecal valve and the appendiceal orifice were visualized and appeared normal. Prep was excellent. Mucosa of the cecum, ascending colon, transverse colon, descending colon, sigmoid colon, and rectum appeared normal. Random biopsies were done from the cecum to rectum at every 10 cm intervals to rule out dysplasia. Scattered sigmoid diverticulosis. Retroflexion was performed in the rectum and no lesions were seen. The patient tolerated the procedure well. IMPRESSION: Normal-appearing colon from rectum to cecum with no evidence of active colitis or colorectal neoplasia Scattered sigmoid diverticulosis. RECOMMENDATIONS: Findings of this examination were discussed with the patient as well as her family. She was advised to follow with the biopsy results. She will continue with Lialda 2 tabs daily and she'll be seen in office in 6 months.. If the biopsies do not have have any evidence of dysplasia, she can have a repeat colonoscopy in 2 years.
[2021-05-01 08:45] VITALS: RESP 16
[2021-05-01 08:51] VITALS: BP 128/73; PULSE 70
== END 2021-05-01 09:21 | disposition home or self-care (01) ==
LOC: ORWHC2ENDO 07:29
PROVIDERS: ATTEND Internal Medicine Gastroenterology
DX: K52.9 Noninfective gastroenteritis and colitis, unspecified (principal); K57.30 Diverticulosis of large intestine without perforation or abscess without bleeding; I10 Essential (primary) hypertension; E78.5 Hyperlipidemia, unspecified; E11.9 Type 2 diabetes mellitus without complications; E07.9 Disorder of thyroid, unspecified; G61.0 Guillain-Barre syndrome; M21.372 Foot drop, left foot; M21.371 Foot drop, right foot; Z79.890 Hormone replacement therapy; Z79.899 Other long term (current) drug therapy; Z90.710 Acquired absence of both cervix and uterus; Z88.1 Allergy status to other antibiotic agents; Z88.8 Allergy status to other drugs, medicaments and biological substances
CPT/HCPCS: 88305; 45380; J2704

== ENCOUNTER → 2021-10-19 | Outpatient (CLI) | payer MEDICARE, BC ==
--- NOTE | 2021-10-19 12:12 | US ---
EXAMINATION TYPE: US kidneys/renal and bladder DATE OF EXAM: 10/19/2021 COMPARISON: NONE CLINICAL HISTORY: N39.0 UTI. hematuria EXAM MEASUREMENTS: Right Kidney: 12.8 x 5.1 x 6.0 cm Left Kidney: 12.6 x 5.5 x 4.7cm cm Right Kidney: mild hydronephrosis with a 1.2cm shadowing stone at the lower pole Left Kidney: small scattered echogenic foci, largest at lower pole measuring 7mm which may represent a stone Bladder: wnl Bilateral Jets seen: yes No masses are identified. The urinary bladder is anechoic. Bilateral ureteral jets are seen. IMPRESSION: Right-sided hydronephrosis with bilateral nephrolithiasis.
== END | disposition home or self-care (01) ==
LOC: RADUSWWP 10:42
PROVIDERS: ATTEND Internal Medicine Geriatric Medicine
DX: N13.2 Hydronephrosis with renal and ureteral calculous obstruction (principal)
CPT/HCPCS: 76770

== ENCOUNTER → 2021-12-03 | Outpatient (CLI) | payer MEDICARE, BC ==
--- NOTE | 2021-12-03 11:00 | CT ---
EXAMINATION TYPE: CT abdomen pelvis wo con DATE OF EXAM: 12/03/2021 HISTORY: Calculus of kidney CT DLP: 309.8 mGycm. Automated Exposure Control for Dose Reduction was Utilized. TECHNIQUE: CT scan of the abdomen and pelvis is performed without oral or IV contrast. COMPARISON: CT abdomen and pelvis April 30, 2017 and renal ultrasound October 19, 2021 FINDINGS: Within the limitations of a non-contrast study, the following observations are made. LUNG BASES: Cardiomegaly with mild to moderate bibasilar linear scarring is redemonstrated. LIVER/GB: Cholecystectomy clips are again seen. PANCREAS: No significant abnormality is seen. SPLEEN: No significant abnormality is seen. ADRENALS: No significant abnormality is seen. KIDNEYS: There are 2-3 scattered tiny left renal calculi up to 4 mm in size axial image 53. There are 2-3 punctate upper pole right renal calculi along with additional dominant 9 mm calculus lower pole level on image 36 and 2 adjacent 5 to 6 mm calculi lower pole level. No left-sided hydronephrosis. Le ft-sided extrarenal pelvis. Persistent moderate right-sided hydronephrosis without hydroureter. No ob structing ureteral calculi. Scattered pelvic phleboliths more numerous in the right pelvis. No intral uminal calculus in the bladder. BOWEL: No suspicious small or large bowel dilatation. Prominent diverticulosis in the sigmoid colon. No CT evidence for acute diverticulitis. Large 6.2 cm duodenal diverticulum axial image 51 redemonstr ated. GENITAL ORGANS: Uterus is surgically absent. LYMPH NODES: No greater than 1cm abdominal or pelvic lymph nodes are appreciated. OSSEOUS STRUCTURES: Grade 1 anterolisthesis L4 on L5. Mild disc space narrowing with vacuum disc phen omenon L5-S1 level. OTHER: Mild/moderate calcified plaque of the aorta extends into and vessel. IMPRESSION: Moderate right-sided hydronephrosis remains present without obstructing calculus. Suspect UPJ stricture or stenosis. Correlate clinically. Bilateral nephrolithiasis as detailed above. No lef t-sided hydronephrosis.
== END | disposition home or self-care (01) ==
LOC: RADCTMAIN 09:27
PROVIDERS: ATTEND Urology
DX: N13.30 Unspecified hydronephrosis (principal); N20.0 Calculus of kidney
CPT/HCPCS: 74176

== ENCOUNTER → 2022-02-21 | Outpatient (CLI) | payer MEDICARE, BC ==
--- NOTE | 2022-02-22 07:54 | BD ---
EXAMINATION TYPE: Axial Bone Density DATE OF EXAM: 02/21/2022 COMPARISON: 07/23/2016 DEXA bone scan CLINICAL HISTORY: 81 years year old Female. ICD-10 CODE: M81.0 OSTEOPOROSIS Height: 61.7 IN Weight: 139 LBS FRAX RISK QUESTIONS: History of Fracture in Adulthood: RT ANKLE FX AGE 51 Secondary Osteoporosis: 3. Menopause before 45: PARTIAL HYST AGE 41 RISK FACTORS HISTORY OF: Active: YES Postmenopausal woman: PARTIAL HYST AGE 41 MEDICATIONS: Thyroid Medications: YES Which medication: Levothyroxine How Long: SINCE 1962 Additional Medications: VIT D, LEVOTHYROXINE,HEART MED (MUSCLE MED), DIABETES MEDS, IBS MEDS.; ROSUVA STATIN, LIALDA EXAM MEASUREMENTS: Bone mineral densitometry was performed using the Loogla System. Bone mineral density as measured about the Lumbar spine is: ----- L1-L4(G/cm2): 1.464 T Score Values are as follows: ----- L1: 1.7 ----- L2: 1.8 ----- L3: 3.7 ----- L4: 2.2 ----- L1-L4: 2.4 Bone mineral density has: Increased 0.6since study of: 07/23/2016 Bone mineral density about the R hip (g/cm2): 1.048 Bone mineral density about the L hip (g/cm2): 1.033 T Score values are as follows: -----R Neck: 0.1 -----L Neck: 0.0 -----R Total: 0.5 -----L Total: 0.7 Bone mineral density has: Decreased -4.6 since study of: 07/23/2016 FRAX%s: The graph provided illustrates a 13.3ance for a major osteoporotic fx and a 1.5 chance for th e hips probability for fx in 10 years time. IMPRESSION: Normal (Values between +1 and -1 indicate normal bone mass). Consider repeating this study in 5 year s or sooner if there is some new clinical indication. NOTE: T-SCORE=SD OF THE YOUNG ADULT MEAN.
--- NOTE | 2022-02-22 12:47 | MM ---
Reason for Exam: Screening (asymptomatic). Last mammogram was performed 4 year(s) and 2 month(s) ago. Patient History: Menarche at age 13. First Full-Term at age 21. Hysterectomy at age 43. Postmenopausal. 03/18/2001, Benign Excisional Biopsy on the right side. Risk Values: Sara 5 year model risk: 1.7%. NCI Lifetime model risk: 2.7%. Prior Study Comparison: 07/08/2007 Bilateral Screening Mammogram, [facility]. 07/23/2016 Bilateral Screening Mammogram, [facility]. 12/31/2017 Bilateral Screening Mammogram, [facility]. Tissue Density: There are scattered fibroglandular densities. Findings: Analyzed By CAD. Pattern appears stable There are punctate calcifications grouped in the lower inner aspect left mid to posterior left breast. Additional workup is recommended with magnification views. Overall Assessment: Incomplete: need additional imaging evaluation, BI-RAD 0 Management: Diagnostic Mammogram of the left breast. A negative mammogram report should not preclude additional follow up of suspicious palpable abnormalities. Patient should continue monthly self breast exam. A clinical breast exam by your physician is recommended on an annual basis and results should be correlated with mammographic findings. Electronically signed and approved by: Jamal Pennington D.O. Radiologis
== END | disposition home or self-care (01) ==
LOC: RADMAMWWP 15:13
PROVIDERS: ATTEND Internal Medicine Geriatric Medicine
DX: Z12.31 Encounter for screening mammogram for malignant neoplasm of breast (principal); M81.0 Age-related osteoporosis without current pathological fracture; Z78.0 Asymptomatic menopausal state; Z98.890 Other specified postprocedural states
CPT/HCPCS: 77063; 77067; 77080

== ENCOUNTER → 2022-02-28 | Outpatient (CLI) | payer MEDICARE, BC ==
--- NOTE | 2022-02-28 10:48 | MM ---
Reason for Exam: Additional evaluation requested from abnormal screening. Last screening mammogram was performed less than 1 month ago. Patient History: Menarche at age 13. First Full-Term at age 21. Hysterectomy at age 43. Postmenopausal. 03/18/2001, Benign Excisional Biopsy on the right side. Risk Values: Sara 5 year model risk: 1.7%. NCI Lifetime model risk: 2.7%. Prior Study Comparison: 07/23/2016 Bilateral Screening Mammogram, [facility]. 12/31/2017 Bilateral Screening Mammogram, [facility]. 02/21/2022 Bilateral MG 3D screening mammo w/cad, [facility]. Tissue Density: Left: There are scattered fibroglandular densities. Findings: Analyzed By CAD. An area of heterogeneous grouped microcalcifications in the 8:00 left breast middle to posterior depth are not clearly vascular on magnification views. They remain indeterminate and span nearly 2 cm. Tissue sampling is recommended. Overall Assessment: Suspicious, BI-RAD 4 Management: Stereotactic Core Biopsy of the left breast. For the 8:00 microcalcifications. Results were given to the patient verbally at the time of exam. Electronically signed and approved by: Anabella Shannon M.D. Radiologist
== END | disposition home or self-care (01) ==
LOC: RADMAMWWP 10:14
PROVIDERS: ATTEND Internal Medicine Geriatric Medicine
DX: R92.8 Other abnormal and inconclusive findings on diagnostic imaging of breast (principal); Z78.0 Asymptomatic menopausal state
CPT/HCPCS: 77065; G0279; 77061

== ENCOUNTER → 2022-03-22 | Outpatient (CLI) | payer MEDICARE, BC ==
[2022-03-22 07:33] VITALS: BP 148/73; PULSE 61; RESP 17; TEMP 98.2
--- NOTE | 2022-03-22 08:49 | P.PCN ---
Date of Procedure: 03/22/22 Preoperative Diagnosis: Microcalcifications of concern left breast 8 o'clock position Postoperative Diagnosis: Same Procedure(s) Performed: Left breast stereotactic core biopsy Anesthesia: local Surgeon: Debra Michaud Pathology: other (Breast tissue/microcalcifications of concern identified in specimen) Condition: stable Disposition: same day Indications for Procedure: Microcalcifications of concern left breast Operative Findings: Radiographic specimen reveals microcalcifications of concern Description of Procedure: The patient is an 81-year-old white female who on a routine mammogram was noted to have some microcalcifications of concern in the left breast. She was recommended to undergo stereotactic core biopsy. Risks and benefits of the procedure were discussed with the patient and she wished to proceed. Alternatives such as watchful waiting or resection in the operating room are considered but not recommended. The patient was taken to the stereotactic core biopsy room. She was positioned prone on the low rad table. A wet process technician film was obtained. A cc from below approach was utilized. The area of concern was identified. The area was targeted. A 9-gauge vacuum-assisted core tissue biopsy needle was driven to the correct coordinates after the breast and then prepped using Betadine. 20 mL of 1% lidocaine were used to anesthetize the area of concern. A pre-fire film was obtained. The needle was noted to be in the correct location. The needle was fired. A film was obtained. The needle was noted to be in the correct location. 13 core biopsy specimens were obtained. The area was lavaged. Radiograph of the specimen revealed the calcifications of concern had been adequately sampled. A secure sanchez top hat clip was placed. The clip was noted to be in the correct location. The patient tolerated procedure in s table condition. The patient will follow up with Dr. Garcia next week.
== END ==
LOC: WWCWWP 06:52
PROVIDERS: ATTEND Surgery
DX: Z85.3 Personal history of malignant neoplasm of breast (principal); Z88.1 Allergy status to other antibiotic agents; Z88.8 Allergy status to other drugs, medicaments and biological substances

== ENCOUNTER → 2022-03-22 | Day surgery (SDC) | payer MEDICARE, BC ==
--- NOTE | 2022-03-22 07:59 | P.GSHP ---
History of Present Illness H&P Date: 03/22/22 Chief Complaint: abnormal mammogram Peg is an 81 year old whtie female seen in consultation for Dr. Peña regarding microcalcifications of concern in the lower inner aspect of the left breast. She underwent a bilateral screening mammogram on 614508. This revealed the calcifications of concern. A diagnostic left breast mammogram was then performed on 122 222. This confirmed the calcifications in the 8 o'clock position of the left breast. This being nearly 2 cm and tissue sampling was recommended. No lesions of concern were identified in the right breast. He does not feel any lumps masses or nodules of concern in either breast. She has had a right breast mammogram in the remote past which was benign. She is not complaining of any recent trauma or infection in the breast. She is not complaining of any nipple discharge or skin changes. Caffeine: 2 cups coffee/day nicotine:none chocolate: none BCP: none Family History: none Hormonal History: menarche: 16 1 adopted; breast fed: no, age at first : 21 menopause: 51 hormones: none Surgical History: Trach and feeding tube secondary to Emmanuel Burgess (1984) after a flu shot Right breast biopsy gallbaldder bilateral hand surgery after Nunu Burgess Medical history: braces on feet for foot drop diabetes hypothyroid hyperlipidemia Social History: smoke: none alcohol: none drugs: none - Constitutional Constitutional: Denies chills, Denies fever - EENT Eyes: denies blurred vision, denies pain Ears: deny: decreased hearing, tinnitus Ears, nose, mouth and throat: Denies headache, Denies sore throat - Breasts Breasts: bilateral: as per HPI - Cardiovascular Cardiovascular: Denies chest pain, Denies shortness of breath - Respiratory Respiratory: Reports cough - Gastrointestinal Gastrointestinal: Denies abdominal pain, Denies diarrhea, Denies nausea, Denies vomiting - Genitourinary (Female) Genitourinary: Denies dysuria, Denies hematuria - Menstruation Menstruation: Reports postmenopausal - Musculoskeletal Musculoskeletal: Reports as per HPI - Integumentary Integumentary: Denies pruritus, Denies rash - Neurological Neurological: Reports as per HPI - Psychiatric Psychiatric: Denies anxiety, Denies depression - Endocrine Endocrine: Denies fatigue, Denies weight change - Hematologic/Lymphatic Comment: none - Allergic/Immunologic Allergic/Immunologic: Reports seasonal allergies Past Medical History Past Medical History: Diabetes Mellitus, Hyperlipidemia, Pneumonia, Thyroid Disorder Additional Past Medical History / Comment(s): 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 junior hand surgery, thyroidectomy, Bilat cataracts surgery, colonoscopy Past Anesthesia/Blood Transfusion Reactions: No Reported Reaction Past Psychological History: No Psychological Hx Reported Smoking Status: Never smoker Past Alcohol Use History: None Reported Past Drug Use History: None Reported - Past Family History Mother Family Medical History: No Reported History Medications and Allergies Home Medications Medication Instructions Recorded Confirmed Type carvediloL [Coreg] 3.125 mg PO BID 12/22/16 03/22/22 History Levothyroxine Sodium [Synthroid] 75 mcg PO DAILY 01/26/18 03/22/22 History glipiZIDE/METFORMIN HCL 2 tab PO BID 01/26/18 03/22/22 History [glipiZIDE/METFORMIN HCL 5-500 mg] Cholecalciferol [Vitamin D3 (25 25 mcg PO DAILY 04/26/21 03/22/22 History Mcg = 1000 Iu)] Mesalamine [Lialda] 1.2 gm PO BID 04/26/21 03/22/22 History Rosuvastatin Calcium [Crestor] 5 mg PO DAILY 04/26/21 03/22/22 History Allergies Allergy/AdvReac Type Severity Reaction Status Date / Time clarithromycin [From Biaxin] Allergy mouth rash Verified 03/22/22 07:27 diphenhydramine HCl AdvReac makes per Verified 03/22/22 07:27 [From Benadryl] hyperactive Surgical - Exam - General well developed, well nourished, no distress - Eyes normal ocular movement - ENT no congestion - Neck scar from proir trach site trachea midline - Respiratory normal respiratory effort - Cardiovascular Rhythm: regular Heart Sounds: normal: S1, S2 Abnormal Heart Sounds: systolic murmur - Abdomen Abdomen: soft, non tender, no guarding, no rigid, no rebound - Integumentary normal turgor - Neurologic no disoriented, no combative - Musculoskeletal gait affected by Nunu Puri - Psychiatric oriented to time, oriented to person, oriented to place, speech is normal, memory intact Breast Exam: BRA: 38B Inspection: bilateral grade 3 ptosis Operation: Right breast: Multiple positional exam fibrocystic changes no dominant masses or nodules of concern Right axilla: No adenopathy of concern Left breast: Multiple positional exam fibrocystic changes, no dominant masses or nodules of concern Left axilla: Shoddy adenopathy non-worrisome Results Mammogram: [id number], and [id number] microcalcifications left breast 8 o'clock position Assessment and Plan Assessment: Impression: Abnormal left breast mammogram History of Zabrina Puri ? MISSAEL Plan: left breast stero biopsy Risk and benefits of the procedure discussed with the patient. Include but are not limited to bleeding, infection, reaction to the anesthetic. If the lesion is not able to be targeted then the procedure would be aborted. If the tissue is discordant then further tissue acquisition may be necessary. The patient understands and wishes to proceed. CC: Dr. Peña
--- NOTE | 2022-03-25 11:10 | MM ---
Date of Procedure: 03/22/22 Preoperative Diagnosis: Microcalcifications of concern left breast 8 o'clock position Postoperative Diagnosis: Same Procedure(s) Performed: Left breast stereotactic core biopsy Anesthesia: local Surgeon: Debra Michaud Pathology: other (Breast tissue/microcalcifications of concern identified in specimen) Condition: stable Disposition: same day Indications for Procedure: Microcalcifications of concern left breast Operative Findings: Radiographic specimen reveals microcalcifications of concern Description of Procedure: The patient is an 81-year-old white female who on a routine mammogram was noted to have some microcalcifications of concern in the left breast. She was recommended to undergo stereotactic core biopsy. Risks and benefits of the procedure were discussed with the patient and she wished to proceed. Alternatives such as watchful waiting or resection in the operating room are considered but not recommended. The patient was taken to the stereotactic core biopsy room. She was positioned prone on the low rad table. A customer experience strategist film was obtained. A cc from below approach was utilized. The area of concern was identified. The area was targeted. A 9-gauge vacuum-assisted core tissue biopsy needle was driven to the correct coordinates after the breast and then prepped using Betadine. 20 mL of 1% lidocaine were used to anesthetize the area of concern. A pre-fire film was obtained. The needle was noted to be in the correct location. The needle was fired. A film was obtained. The needle was noted to be in the correct location. 13 core biopsy specimens were obtained. The area was lavaged. Radiograph of the specimen revealed the calcifications of concern had been adequately sampled. A secure sanchez top hat clip was placed. The clip was noted to be in the correct location. The patient tolerated procedure in stable condition. The patient will follow up with Dr. Garcia next week. ASHER
== END ==
LOC: RADMAMWWP 06:52
PROVIDERS: ATTEND Surgery
DX: N60.82 Other benign mammary dysplasias of left breast (principal); N60.12 Diffuse cystic mastopathy of left breast; R92.0 Mammographic microcalcification found on diagnostic imaging of breast; E03.9 Hypothyroidism, unspecified; E11.9 Type 2 diabetes mellitus without complications; E78.5 Hyperlipidemia, unspecified; J18.9 Pneumonia, unspecified organism; Z79.890 Hormone replacement therapy; Z79.899 Other long term (current) drug therapy; Z88.0 Allergy status to penicillin; Z88.8 Allergy status to other drugs, medicaments and biological substances; Z79.84 Long term (current) use of oral hypoglycemic drugs; Z90.49 Acquired absence of other specified parts of digestive tract
CPT/HCPCS: 88305; 19081; A4648

== ENCOUNTER → 2022-03-29 | Outpatient (CLI) | payer MEDICARE, BC ==
[2022-03-29 10:14] VITALS: BP 155/64; PULSE 67; RESP 16; TEMP 98.2
--- NOTE | 2022-03-29 10:17 | P.PN ---
Subjective Progress Note Date: 03/29/22 Principal diagnosis: Fibrocystic breast changes Peg is an 81-year-old white female who underwent a stereotactic core biopsy of the left breast [place] [id number]. 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 She tolerated the biopsy without difficulty. Objective - Vital Signs Vital signs: Intake & Output 03/28/22 03/29/22 03/29/22 18:59 06:59 18:59 Weight 58.967 kg - Constitutional General appearance: Present: cooperative - EENT Eyes: Present: EOMI ENT: Present: hearing grossly normal - Neck Neck: Present: normal ROM - Respiratory Respiratory: bilateral: CTA - Cardiovascular Heart sounds: normal: S1, S2 - Integumentary Integumentary Comment(s): biopsy site right breast clean and healing well Assessment and Plan Assessment: Impression: Patient status post stero tactic core biopsy left breast pathology benign Plan: Repeat left breast mammogram 6 months with physician exam at that time CC: Dr. Peña
== END ==
LOC: WWCWWP 10:05
PROVIDERS: ATTEND Surgery
DX: Z85.3 Personal history of malignant neoplasm of breast (principal); Z88.1 Allergy status to other antibiotic agents; Z88.8 Allergy status to other drugs, medicaments and biological substances

== ENCOUNTER → 2022-09-20 | Outpatient (CLI) | payer MEDICARE, BC ==
--- NOTE | 2022-09-20 11:15 | MM ---
Reason for Exam: Follow-up at short interval from prior study. Last screening mammogram was performed 7 month(s) ago. Patient History: Menarche at age 13. First Full-Term at age 21. Hysterectomy at age 43. Postmenopausal. Previous Hyperplasia w/o Atypia at age 81. 03/22/2022, Benign MG stereo VAD BX LT on the left side. 03/18/2001, Benign Excisional Biopsy on the right side. Risk Values: Sara 5 year model risk: 2.2%. NCI Lifetime model risk: 3.4%. Prior Study Comparison: 12/31/2017 Bilateral Screening Mammogram, [facility]. 02/21/2022 Bilateral MG 3D screening mammo w/cad, [facility]. 02/28/2022 Left MG 3D work up w/cad LT, [facility]. Tissue Density: Left: There are scattered fibroglandular densities. Findings: Analyzed By CAD. Pattern appears stable. There is some increased density at the prior biopsy site. No significant interval change is evident. No suspicious groups of microcalcifications, spiculated or lobular masses, architectural distortion or other secondary signs of malignancy are mammographically apparent. Overall Assessment: Benign, BI-RAD 2 Management: Screening Mammogram of both breasts in 6 months. A negative mammogram report should not preclude additional follow up of suspicious palpable abnormalities. Patient should continue monthly self breast exam. A clinical breast exam by your physician is recommended on an annual basis and results should be correlated with mammographic findings. Electronically signed and approved by: Jamal Pennington D.O. Radiologis
[2022-09-20 11:51] VITALS: BP 157/61; PULSE 94; RESP 17; TEMP 97.5
== END ==
LOC: WWCWWP 10:48
PROVIDERS: ATTEND Surgery
DX: R92.8 Other abnormal and inconclusive findings on diagnostic imaging of breast (principal); Z78.0 Asymptomatic menopausal state; Z98.890 Other specified postprocedural states; Z88.1 Allergy status to other antibiotic agents; Z88.8 Allergy status to other drugs, medicaments and biological substances
CPT/HCPCS: 77065; G0279; 77061

== ENCOUNTER → 2023-03-24 | Outpatient (CLI) | payer MEDICARE, BC ==
--- NOTE | 2023-03-24 13:34 | MM ---
Reason for Exam: Additional evaluation requested from abnormal screening. Last mammogram was performed 1 year(s) and 1 month(s) ago. Patient History: Menarche at age 13. First Full-Term at age 21. Hysterectomy at age 43. Postmenopausal. Previous Hyperplasia w/o Atypia at age 81. 03/22/2022, Benign MG stereo VAD BX LT on the left side. 03/18/2001, Benign Excisional Biopsy on the right side. Risk Values: Sara 5 year model risk: 2.2%. NCI Lifetime model risk: 3.1%. Prior Study Comparison: 07/08/2007 Bilateral Screening Mammogram, [facility]. 07/23/2016 Bilateral Screening Mammogram, [facility]. 12/31/2017 Bilateral Screening Mammogram, [facility]. 02/21/2022 Bilateral MG 3D screening mammo w/cad, [facility]. 02/28/2022 Left MG 3D work up w/cad LT, [facility]. 09/20/2022 Left MG 3D diag mammo w/cad LT, [facility]. Tissue Density: There are scattered fibroglandular densities. Findings: Analyzed By CAD. Microclip medial left breast from prior biopsy. Some residual adjacent microcalcifications related to the patient's biopsy site are redemonstrated. No significant change from prior exams. Overall Assessment: Benign, BI-RAD 2 Management: Screening Mammogram of both breasts in 1 year. . Results were given to the patient verbally at the time of exam. Patient should continue monthly self-breast exams. A clinical breast exam by your physician is recommended on an annual basis. This exam should not preclude additional follow-up of suspicious palpable abnormalities. Note on Sara scores and lifetime risk: 1. A Sara score greater than 3% is considered moderate risk. If this is the case, consider specialist referral to assess eligibility for a risk reducing agent. 2. If overall lifetime risk for the development of breast cancer is 20% or higher, the patient may qualify for future screening with alternating mammogram and breast MRI. Electronically signed and approved by: Anabella Shannon M.D. Radiologist
== END | disposition home or self-care (01) ==
LOC: RADMAMWWP 12:59
PROVIDERS: ATTEND Surgery
DX: R92.323 Mammographic fibroglandular density, bilateral breasts (principal); Z78.0 Asymptomatic menopausal state
CPT/HCPCS: 77066; G0279; 77062

== ENCOUNTER → 2023-12-19 | Outpatient (CLI) | payer MEDICARE, BC ==
--- NOTE | 2023-12-19 09:39 | US ---
EXAMINATION TYPE: US kidneys/renal and bladder DATE OF EXAM: 12/19/2023 COMPARISON: US 2021 CLINICAL INDICATION: Female, 83 years old with history of R31.9 HEMATURIA; TECHNIQUE: Grayscale and color Doppler imaging of the bilateral kidneys and urinary bladder: FINDINGS: EXAM MEASUREMENTS: Right Kidney: 10.2 x 5.6 x 5.9 cm Left Kidney: 9.5 x 5.2 x 4.7 cm Right Kidney: hydronephrosis, 0.7cm stone mid pole, 0.6cm stone inferior pole Left Kidney: 0.6cm stone inferior pole Bladder: wnl Bilateral Jets seen: right jet seen, left jet not seen There is no evidence for left-sided hydronephrosis at this point in time. No masses are identified. The urinary bladder is anechoic. IMPRESSION: 1. Nonobstructing nephrolithiasis with mild right-sided hydronephrosis. [facility], , 12/19/2023 9:37 AM
== END | disposition home or self-care (01) ==
LOC: RADUSWWP 08:01
PROVIDERS: ATTEND Internal Medicine Geriatric Medicine
CPT/HCPCS: 76770

== ENCOUNTER 2024-01-08 10:02 | Emergency (ER) | payer MEDICARE, BC ==
--- NOTE | 2024-01-08 10:32 | ED ---
Dizziness HPI - General Chief Complaint: Dizziness Stated Complaint: Fall/dizzy Time Seen by Provider: 01/08/24 10:09 Source: patient, RN notes reviewed Mode of arrival: wheelchair Limitations: no limitations - History of Present Illness Initial Comments: This is an 83-year-old female who presents to the emergency department for dizziness. Patient fell about 12 days ago in her garage and hit her head. She went to [facility] and had a CT scan of the facial bones, but states that they did not image her brain. Denies any loss of consciousness and she is not on blood thinners. States that since then she has been very dizzy. This only occurs at night. She noticed that if she goes to get into bed and then rolls over she starts to experience the dizziness. Describes this as a room spinning sensation. Reports possible mild associated nausea but no vomiting. This does not occur during the day. Denies any history of vertigo or similar symptoms in the past. She does have some residual pain over the right rib cage, but otherwise denies any chest pain or shortness of breath. She is taking Aleve without much improvement in pain. MD Complaint: dizziness - Related Data Home Medications Medication Instructions Recorded Confirmed carvediloL [Coreg] 3.125 mg PO BID 12/22/16 09/20/22 Levothyroxine Sodium [Synthroid] 75 mcg PO DAILY 01/26/18 09/20/22 glipiZIDE/METFORMIN HCL 2 tab PO BID 01/26/18 09/20/22 [glipiZIDE/METFORMIN HCL 5-500 mg] Cholecalciferol [Vitamin D3 (25 25 mcg PO DAILY 04/26/21 09/20/22 Mcg = 1000 Iu)] Mesalamine [Lialda] 1.2 gm PO BID 04/26/21 09/20/22 Rosuvastatin Calcium [Crestor] 5 mg PO DAILY 04/26/21 09/20/22 Previous Rx's Medication Instructions Recorded Ibuprofen [Motrin] 800 mg PO Q8HR PRN #30 tab 12/06/22 Lidocaine 5% Patch [Lidoderm 5% 1 patch TOPICAL DAILY #5 patch 12/06/22 Patch] Meclizine HCl 25 mg PO QID PRN #20 tab 01/08/24 Meloxicam [Mobic] 15 mg PO DAILY PRN #30 tab 01/08/24 Metoclopramide [Reglan] 5 - 10 mg PO Q6H PRN #30 tab 01/08/24 Allergies Allergy/AdvReac Type Severity Reaction Status Date / Time clarithromycin [From Biaxin] Allergy mouth rash Verified 01/08/24 10:04 diphenhydramine HCl AdvReac makes per Verified 01/08/24 10:04 [From Benadryl] hyperactive Review of Systems ROS Statement: Those systems with pertinent positive or pertinent negative responses have been documented in the HPI. ROS Other: All systems not noted in ROS Statement are negative. 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 junior hand surgery, thyroidectomy, Bilat cataracts surgery, colonoscopy Past Anesthesia/Blood Transfusion Reactions: No Reported Reaction Past Psychological History: No Psychological Hx Reported Smoking Status: Never smoker Past Alcohol Use History: None Reported Past Drug Use History: None Reported - Past Family History Mother Family Medical History: No Reported History General Exam Limitations: no limitations General appearance: alert, in no apparent distress Head exam: Present: atraumatic, normocephalic, normal inspection Eye exam: Present: normal appearance, PERRL, EOMI. Absent: scleral icterus, conjunctival injection, periorbital swelling Respiratory exam: Present: normal lung sounds bilaterally. Absent: respiratory distress, wheezes, rales, rhonchi, stridor Cardiovascular Exam: Present: regular rate, normal rhythm, normal heart sounds. Absent: systolic murmur, diastolic murmur, rubs, gallop, clicks Neurological exam: Present: alert, oriented X3, CN II-XII intact Psychiatric exam: Present: normal affect, normal mood Skin exam: Present: warm, dry, intact, normal color. Absent: rash Course Vital Signs 01/08/24 10:04 Temperature 98.5 F Pulse Rate 61 Respiratory 18 Rate Blood Pressure 145/77 O2 Sat by Pulse 97 Oximetry Medical Decision Making - Medical Decision Making This is an 83 year old female who presents to the emergency department for dizziness. Was pt. sent in by a medical professional or institution? @ -No Did you speak to anyone other than the patient for history? @ -No Did you review nursing and triage notes? @ -Yes, and I agree, it is accurate with regards to the patient's symptoms. Were old charts reviewed? @ -No Differential Diagnosis? @ -Differential Dizziness: Benign paroxysmal positional Vertigo, Meniere's disease, otitis media, acoustic neuroma, vertebrobasilar insufficiency, cerebellar stroke, encephalitis, hypovolemic, arrhythmia, coronary artery syndrome, anemia, this is not meant to be an all-inclusive list EKG interpreted by me (3pts min.)? @ -EKG interpreted by me demonstrating the following: Sinus rhythm. Ventricular rate 54 bpm, QRS duration 116 ms, QTc 432 ms. X-rays interpreted by me (1pt min.)? @ -Chest x-ray obtained, my interpretation identifies no localized consolidations or infiltrates. CT interpreted by me (1pt min.)? @ -Computed tomography scan of the brain and c-spine obtained. My interpretation identifies no evidence of an acute intracranial hemorrhage, skull fracture, or cervical spine fracture. U/S interpreted by me (1pt. min.)? @ -Not obtained What testing was considered but not performed? (CT, X-rays, U/S, labs)? Why? @ -None What meds were considered but not given? Why? @ -None Did you discuss the management of the patient with other professionals? @ -No Did you reconcile home meds? @ -No Was smoking cessation discussed for >3mins.? @ -No Was critical care preformed (if so, how long)? @ -No Were there social determinants of health that impacted care today? How? (H omelessness, low income, unemployed, alcoholism, drug addiction, transportation, low edu. Level, literacy, decrease access to med. care, senior care, rehab)? @ -No Was there de-escalation of care discussed even if they declined? (Discuss DNR or withdrawal of care, Hospice)? @ -No What co-morbidities impacted this encounter? (DM, HTN, Smoking, COPD, CAD, Cancer, CVA, Hep., AIDS, mental health diagnosis, sleep apnea, morbid obesity)? @ -DM, HLD Was patient admitted / discharged? @ -Discharged. Lab work unremarkable. CT scan of the brain and C-spine revealed no acute findings. Chest x-ray also reveals no acute process, including no rib fractures. She was given a liter bolus of IV fluids in the emergency department. Patient remained asymptomatic while she was here. Symptoms may be related to vertigo, especially given that they are worse with movement and with a room spinning sensation. We discussed that vertigo can be triggered by a fall. Scopolamine patch applied in the emergency department prior to discharge to see if that offers her any benefit. She does have a hyperactive response to Benadryl. Meclizine was prescribed, however advised that she may get a similar response to this and she should be careful about taking it at night until she knows how she responds, otherwise she may not be able to sleep. Reglan prescribed as well in the event she cannot take the meclizine. Additionally, I did send in meloxicam to see if that is more effective for the pain than the naproxen. Advised close follow-up with her PCP. Patient discharged home in stable condition. Case discussed with ED attending Dr. Ackerman. Return precautions reviewed in depth, the patient is instructed to return to the emergency department with any new, worsening, or concerning symptoms. Patient verbalized understanding. Undiagnosed new problem with uncertain prognosis? @ -None Drug Therapy requiring intensive monitoring for toxicity (Heparin, Nitro, Insulin, Cardizem)? @ -None Were any procedures done? @ -None Diagnosis/symptom? @ -Fall, head injury, BPPV, right rib contusion Acute, or Chronic, or Acute on Chronic? @ -Acute Uncomplicated (without systemic symptoms) or Complicated (systemic symptoms)? @ -Uncomplicated Side effects of treatment? @ -None Exacerbation, Progression, or Severe Exacerbation] @ -Not applicable Poses a threat to life or bodily function? @ -No - Lab Data Result diagrams: 01/08/24 10:52 01/08/24 10:52 Lab Results 01/08/24 01/08/24 01/08/24 Range/Units 10:52 10:52 10:52 WBC 5.5 (3.8-10.6) k/uL RBC 3.67 L (3.80-5.40) m/uL Hgb 11.2 L (11.4-16.0) gm/dL Hct 34.9 (34.0-46.0) % MCV 95.0 (80.0-100.0) fL MCH 30.5 (25.0-35.0) pg MCHC 32.1 (31.0-37.0) g/dL RDW 13.5 (11.5-15.5) % Plt Count 219 (150-450) k/uL MPV 7.1 Neutrophils % 75 % Lymphocytes % 17 % Monocytes % 6 % Eosinophils % 0 % Basophils % 1 % Neutrophils # 4.1 (1.3-7.7) k/uL Lymphocytes # 1.0 (1.0-4.8) k/uL Monocytes # 0.3 (0-1.0) k/uL Eosinophils # 0.0 (0-0.7) k/uL Basophils # 0.0 (0-0.2) k/uL PT (10.0-12.5) sec INR (<1.2) Sodium 138 (137-145) mmol/L Potassium 4.0 (3.5-5.1) mmol/L Chloride 107 (98-107) mmol/L Carbon Dioxide 26 (22-30) mmol/L Anion Gap 5 mmol/L BUN 17 (7-17) mg/dL Creatinine 0.46 L (0.52-1.04) mg/dL Est GFR (CKD-EPI)AfAm >90 (>60 ml/min/1.73 sqM) Est GFR (CKD-EPI)NonAf >90 (>60 ml/min/1.73 sqM) Glucose 182 H (74-99) mg/dL Plasma Lactic Acid Michael 1.5 (0.7-2.0) mmol/L Calcium 9.2 (8.4-10.2) mg/dL Magnesium 1.8 (1.6-2.3) mg/dL Total Bilirubin 0.4 (0.2-1.3) mg/dL AST 20 (14-36) U/L ALT 16 (4-34) U/L Alkaline Phosphatase 62 (38-126) U/L Troponin I (0.000-0.034) ng/mL Total Protein 6.2 L (6.3-8.2) g/dL Albumin 3.6 (3.5-5.0) g/dL Urine Color Urine Appearance (Clear) Urine pH (5.0-8.0) Ur Specific [place] (1.001-1.035) Urine Protein (Negative) Urine Glucose (UA) (Negative) Urine Ketones (Negative) Urine Blood (Negative) Urine Nitrite (Negative) Urine Bilirubin (Negative) Urine Urobilinogen (<2.0) mg/dL Ur Leukocyte Esterase (Negative) Urine RBC (0-5) /hpf Urine WBC (0-5) /hpf Hyaline Casts (0-2) /lpf Urine Mucus (None) /hpf 01/08/24 01/08/24 01/08/24 Range/Units 10:52 10:52 10:52 WBC (3.8-10.6) k/uL RBC (3.80-5.40) m/uL Hgb (11.4-16.0) gm/dL Hct (34.0-46.0) % MCV (80.0-100.0) fL MCH (25.0-35.0) pg MCHC (31.0-37.0) g/dL RDW (11.5-15.5) % Plt Count (150-450) k/uL MPV Neutrophils % % Lymphocytes % % Monocytes % % Eosinophils % % Basophils % % Neutrophils # (1.3-7.7) k/uL Lymphocytes # (1.0-4.8) k/uL Monocytes # (0-1.0) k/uL Eosinophils # (0-0.7) k/uL Basophils # (0-0.2) k/uL PT 11.1 (10.0-12.5) sec INR 1.0 (<1.2) Sodium (137-145) mmol/L Potassium (3.5-5.1) mmol/L Chloride (98-107) mmol/L Carbon Dioxide (22-30) mmol/L Anion Gap mmol/L BUN (7-17) mg/dL Creatinine (0.52-1.04) mg/dL Est GFR (CKD-EPI)AfAm (>60 ml/min/1.73 sqM) Est GFR (CKD-EPI)NonAf (>60 ml/min/1.73 sqM) Glucose (74-99) mg/dL Plasma Lactic Acid Michael (0.7-2.0) mmol/L Calcium (8.4-10.2) mg/dL Magnesium (1.6-2.3) mg/dL Total Bilirubin (0.2-1.3) mg/dL AST (14-36) U/L ALT (4-34) U/L Alkaline Phosphatase (38-126) U/L Troponin I <0.012 (0.000-0.034) ng/mL Total Protein (6.3-8.2) g/dL Albumin (3.5-5.0) g/dL Urine Color Colorless Urine Appearance Clear (Clear) Urine pH 6.5 (5.0-8.0) Ur Specific [place] 1.014 (1.001-1.035) Urine Protein Negative (Negative) Urine Glucose (UA) 1+ H (Negative) Urine Ketones Negative (Negative) Urine Blood Trace H (Negative) Urine Nitrite Negative (Negative) Urine Bilirubin Negative (Negative) Urine Urobilinogen <2.0 (<2.0) mg/dL Ur Leukocyte Esterase Negative (Negative) Urine RBC 10 H (0-5) /hpf Urine WBC 1 (0-5) /hpf Hyaline Casts 1 (0-2) /lpf Urine Mucus Rare H (None) /hpf - Radiology Data Radiology results: report reviewed, image reviewed Disposition Clinical Impression: Fall, BPPV (benign paroxysmal positional vertigo), Head injury, Rib contusion Disposition: HOME SELF-CARE Instructions (If sedation given, give patient instructions): Benign Paroxysmal Positional Vertigo (ED), Dizziness (ED) Additional Instructions: Return to the emergency department with any new, worsening, or concerning symptoms. You can try taking the meclizine up to 4 times daily for feelings of dizziness. However, this works similar to Benadryl, so if you take it at night it could cause a similar hyperactive response. You can try taking the Reglan as 1 to 2 tablets up to 4 times daily. This is listed as being for nausea and vomiting. It can also be used for the dizziness. You can try taking the Mobic once daily for pain. If you choose to take this, do not take naproxen/Aleve, take one or the other. You may take either of these with Tylenol. Follow up with your primary care provider in 1-2 days. Prescriptions: Meclizine HCl 25 mg PO QID PRN #20 tab PRN Reason: Vertigo Meloxicam [Mobic] 15 mg PO DAILY PRN #30 tab PRN Reason: Pain Metoclopramide [Reglan] 5 - 10 mg PO Q6H PRN #30 tab PRN Reason: Nausea And Vomiting Is patient prescribed a controlled substance at d/c from ED?: No Referrals: Bruce Peña MD [Primary Care Provider] - 1-2 days Time of Disposition: 12:13
[2024-01-08 11:16] LABS: Basophils % (A) 1 %; Eosinophils % (A) 0 %; HCT 34.9 % (34.0-46.0); HGB 11.2 gm/dL (11.4-16.0); Lymphocytes % (A) 17 %; MCH 30.5 pg (25.0-35.0); MCHC 32.1 g/dL (31.0-37.0); Mean Platelet Volume 7.1; Monocytes # (A) 0.3 k/uL (0-1.0); Monocytes % (A) 6 %; Neutrophils # (A) 4.1 k/uL (1.3-7.7); Neutrophils % (A) 75 %; Platelet Count 219 k/uL (150-450); RBC 3.67 m/uL (3.80-5.40); RDW 13.5 % (11.5-15.5); WBC 5.5 k/uL (3.8-10.6)
[2024-01-08 11:20] LABS: Prothrombin Time 11.1 sec (10.0-12.5)
[2024-01-08] MEDS: SODIUM CHLORIDE 0.9% 1,000 ML IV STA (11:35)
[2024-01-08 11:39] LABS: ALT 16 U/L (4-34); AST 20 U/L (14-36); African American GFR (CKD) >90 (>60 ml/min/1.73 sqM); Albumin 3.6 g/dL (3.5-5.0); Alkaline Phosphatase 62 U/L (38-126); Anion Gap 5 mmol/L; Blood Urea Nitrogen 17 mg/dL (7-17); Calcium 9.2 mg/dL (8.4-10.2); Carbon Dioxide 26 mmol/L (22-30); Chloride 107 mmol/L (98-107); Glucose 182 mg/dL (74-99); Magnesium 1.8 mg/dL (1.6-2.3); Non-African American GFR(CKD) >90 (>60 ml/min/1.73 sqM); Sodium 138 mmol/L (137-145); Total Bilirubin 0.4 mg/dL (0.2-1.3); Total Protein 6.2 g/dL (6.3-8.2)
--- NOTE | 2024-01-08 11:40 | CT ---
EXAMINATION TYPE: CT brain pako wo con DATE OF EXAM: 01/08/2024 COMPARISON: Head CT dated 03/25/2011 CLINICAL INDICATION: Female, 83 years old with history of Dizziness, recent head injury; [facility], Fall 10 days ago, did hit RT side of face/head, c/o dizziness. TECHNIQUE: CT scan of the head and cervical spine are performed without contrast. CT DLP: 1359.5 mGycm Automated exposure control for dose reduction was used. Findings: Head CT: Ventricles, basal cisterns and sulci over convexities are mildly enlarged consistent with mild age-ap propriate atrophy. There is no mass affect or shift of the midline structures. No abnormal density is seen throughout the brain parenchyma and there is no acute intra or extra-axia l hemorrhage. Posterior fossa including the brainstem, fourth ventricle and cerebellar pontine angles are grossly n ormal. The intraorbital contents appear normal and symmetric. Visualized paranasal sinuses are well aerated. CT cervical spine: Craniovertebral junction relationships and prevertebral soft tissues are normal. The cervical vertebral segments are normal in height and alignment and there is no fracture subluxati on. There is mild disc space narrowing and spondylosis at the C5-6 due to a lesser extent C6-7 level cons istent with mild to moderate degenerative disc disease. There is mild degeneration of multiple facet joints and uncovertebral joints particularly in the CC-6 and C6-7 levels. The bony cervical canal is widely patent and there is no bony encroachment of the neural foramina. The paraspinal soft tissues unremarkable. IMPRESSION: 1. Head CT: No acute bleed or mass effect. Age-appropriate atrophy. 2. CT cervical spine: No acute trauma. Mild degenerative changes as described above. [facility], , 01/08/2024 11:38 AM
[2024-01-08 11:54] LABS: Appearance,Urine Clear (Clear); Bilirubin,Urine Negative (Negative); Blood,Urine Trace (Negative); Color,Urine Colorless; Glucose,Urine (UA) 1+ (Negative); Hyaline Casts,Urine 1 /lpf (0-2); Ketones,Urine Negative (Negative); Leukocyte Esterase,Urine Negative (Negative); Mucus,Urine Rare /hpf; Nitrite,Urine Negative (Negative); PH, Urine 6.5 (5.0-8.0); Protein,Urine Negative (Negative); RBC,Urine 10 /hpf (0-5); Specific Gravity,Urine 1.014 (1.001-1.035); Urobilinogen,Urine <2.0 mg/dL (<2.0); WBC,Urine 1 /hpf (0-5)
--- NOTE | 2024-01-08 11:57 | XR ---
EXAMINATION TYPE: XR ribs RT w pa chest xray DATE OF EXAM: 01/08/2024 11:29 AM COMPARISON: 01/26/2018 CLINICAL INDICATION: Female, 83 years old with history of Right rib pain from fall; [facility] TECHNIQUE: XR ribs RT w pa chest xray; Frontal and oblique views of the ribs with frontal chest radio graph. FINDINGS: The ribs have a normal appearance. No evidence of fracture. Overall, the lungs are clear. The cardiac silhouette is normal in size. The remaining osseous structures are intact. Right upper quadrant cholecystectomy clips. IMPRESSION: No displaced rib fractures definitively visualized. If there remains concern consider CT imaging. [facility], , 01/08/2024 11:55 AM
[2024-01-08] MEDS: SCOPOLAMINE 1 MG/72 HR PATCH TRANSDERM STA (12:31)
[2024-01-08 12:40] VITALS: BP 154/53; PULSE 54; RESP 16; TEMP 98.9
== END 2024-01-08 13:00 | disposition home or self-care (01) ==
LOC: EC 10:02
DX: S20.219A Contusion of unspecified front wall of thorax, initial encounter (principal); S09.90XA Unspecified injury of head, initial encounter; H81.10 Benign paroxysmal vertigo, unspecified ear; E78.5 Hyperlipidemia, unspecified; E11.36 Type 2 diabetes mellitus with diabetic cataract; Z79.84 Long term (current) use of oral hypoglycemic drugs; Z79.899 Other long term (current) drug therapy; Z88.8 Allergy status to other drugs, medicaments and biological substances; Z90.49 Acquired absence of other specified parts of digestive tract; W01.10XA Fall on same level from slipping, tripping and stumbling with subsequent striking against unspecified object, initial encounter
CPT/HCPCS: 36415; 70450; 72125; 80053; 81001; 83605; 83735; 84484; 85025; 85610; 93005; 96360; 99285